=== PATIENT | female | born 1940 | race Caucasian/White ===

== ENCOUNTER → 2016-06-11 | Outpatient (CLI) | payer OTHER ==
[~2016-06-11] MED LIST: ACET650T49 PO; AMOX500C3 PO; BISA1TAB15 PO; CLC100X PO; ODVTWSS; OXYC1TAB3 PO; PSYL55.43 PO; WARF2TAB PO
== END | disposition home or self-care (01) ==
LOC: C.PAPS 14:00
PROVIDERS: ATTEND Obstetrics & Gynecology
DX: C55 Malignant neoplasm of uterus, part unspecified (principal)

== ENCOUNTER → 2016-08-04 | Outpatient (CLI) | payer OTHER ==
[~2016-08-04] MED LIST changes: +ACET-24 PO; +ASPEC325 PO; +CALC500C3 PO; +FRRG PO; +MAGN1TAB21 PO; +MULT-1092 PO; +POLY335019 PO; +ULT50X PO
--- NOTE | 2016-08-04 12:21 | DIAGNOSTIC IMAGING REPORT ---
RIGHT SHOULDER MIN 2 VIEWS ROUTINE CLINICAL HISTORY: RIGHT SHOULDER PAIN Right pain COMPARISON: None. DISCUSSION: Mild calcific supraspinatus tendinitis. Moderate degenerative change acromioclavicular joint. Mild hypertrophic inferior osteophytic change from the acromion as well as acromioclavicular joint. Glenohumeral joint is unremarkable. There is no evidence for soft tissue swelling. IMPRESSION: 1. Mild calcific supraspinatus tendinitis. 2. Significant degenerative change acromioclavicular joint with mild to moderate inferior osteophytic reaction. Electronically signed by: Travis Singh M.D. 08/04/2016 12:20 PM Dictated Date/Time: 08/04/2016 12:19 PM
== END ==
LOC: C.RADPV 12:07
PROVIDERS: ATTEND Neuromusculoskeletal Medicine & OMM
DX: M25.511 Pain in right shoulder (principal)

== ENCOUNTER → 2016-08-05 | Outpatient (CLI) | payer OTHER ==
[2016-08-05 12:38] LABS: ALT/SGPT 20 U/L (12-78); AST/SGOT 16 U/L (15-37); BLOOD UREA NITROGEN 23 mg/dl (7-18); BUN/CREATININE RATIO 25.3 (10-20); CALCIUM 9.2 mg/dl (8.5-10.1); CARBON DIOXIDE 29 mmol/L (21-32); CHLORIDE 108 mmol/L (98-107); CREATININE 0.91 mg/dl (0.60-1.20); GLUCOSE 106 mg/dl (70-99); POTASSIUM 4.5 mmol/L (3.5-5.1); SODIUM 141 mmol/L (136-145)
[2016-08-05 12:40] LABS: BASO % 0.5 %; BASO ABS # 0.03 K/uL (0-0.2); COMPLETE YES; EOS % 4.4 %; HEMATOCRIT 38.3 % (37-47); IG% 0.2 %; LYMPH % 29.6 %; LYMPH ABS # 1.76 K/uL (1.2-3.4); MEAN CELL VOLUME 93.2 fL (80-100); MEAN CORPUSCULAR HEMOGLOBIN 30.7 pg (25-34); MEAN CORPUSCULAR HGB CONC 32.9 g/dl (32-36); MEAN PLATELET VOLUME 10.8 fL (7.4-10.4); MONO % 11.1 %; NEUT % 54.2 %; PLATELET COUNT 246 K/uL (130-400); RED BLOOD COUNT 4.11 M/uL (4.2-5.4); WHITE BLOOD COUNT 5.94 K/uL (4.8-10.8)
[2016-08-05 12:50] LABS: ALB/GLOB RATIO 1.1 (0.9-2); ALKALINE PHOSPHATASE 69 U/L (45-117); CHOLESTEROL 198 mg/dl (0-200); CHOLESTEROL/HDL RATIO 3.7; HDL CHOLESTEROL 53 mg/dl; LDL CHOLESTEROL CALCULATED 120 mg/dl; TRIGLYCERIDES 123 mg/dl (0-150); VERY LOW DENSITY LIPOPROT CALC 25 mg/dl
== END | disposition home or self-care (01) ==
LOC: C.LABPVFM 07:57
PROVIDERS: ATTEND Neuromusculoskeletal Medicine & OMM
DX: Z00.00 Encounter for general adult medical examination without abnormal findings (principal)

== ENCOUNTER → 2016-09-12 | Outpatient (CLI) | payer OTHER | END | disposition home or self-care (01) | LOC: C.PAPS 11:52 | PROVIDERS: ATTEND Obstetrics & Gynecology | DX: C55 Malignant neoplasm of uterus, part unspecified (principal); R87.618 Other abnormal cytological findings on specimens from cervix uteri; N89.8 Other specified noninflammatory disorders of vagina ==

== ENCOUNTER → 2016-09-12 | Outpatient (CLI) | payer OTHER | END | disposition home or self-care (01) | LOC: C.PATHSPEC 13:21 | PROVIDERS: ATTEND Obstetrics & Gynecology | DX: N89.8 Other specified noninflammatory disorders of vagina (principal) ==

== ENCOUNTER → 2017-02-05 | Outpatient (CLI) | payer OTHER ==
[~2017-02-05] MED LIST changes: -ACET-24 PO; -ASPEC325 PO; -BISA1TAB15 PO; -CLC100X PO; -FRRG PO; -MAGN1TAB21 PO; -ODVTWSS; -OXYC1TAB3 PO; -PSYL55.43 PO; -ULT50X PO; -WARF2TAB PO
--- NOTE | 2017-02-05 15:32 | MAMMOGRAPHY REPORT ---
BILATERAL DIGITAL SCREENING MAMMOGRAM WITH CAD: 02/05/2017 CLINICAL HISTORY: Routine screening. Patient has no complaints. TECHNIQUE: Current study was also evaluated with a Computer Aided Detection (CAD) system. Bilateral CC and MLO views were obtained. COMPARISON: Comparison is made to exams dated: 02/04/2016 mammogram, 01/29/2015 mammogram, 01/26/2014 mammogram, 01/25/2013 mammogram, 08/06/2011 mammogram, and 07/22/2010 mammogram - [facility] enter. BREAST COMPOSITION: There are scattered areas of fibroglandular density in both breasts. FINDINGS: No suspicious masses, calcifications, or areas of architectural distortion are noted in ei ther breast. There has been no significant interval change compared to prior exams. IMPRESSION: ACR BI-RADS CATEGORY 1: NEGATIVE There is no mammographic evidence of malignancy. A 1 year screening mammogram is recommended. The pa tient will receive written notification of the results. Approximately 10% of breast cancers are not detected with mammography. A negative mammographic report should not delay biopsy if a clinically suggestive mass is present. Carolyn Lee M.D. /:02/05/2017 10:33:04 Safety Manager: Kelli SOUSA)(Phong), [facility] letter sent: Normal 1/2 BI-RADS Code: ACR BI-RADS Category 1: Negative
== END | disposition home or self-care (01) ==
LOC: C.MAMM 09:43
PROVIDERS: ATTEND Family Medicine
DX: Z12.31 Encounter for screening mammogram for malignant neoplasm of breast (principal)

== ENCOUNTER 2017-02-18 08:43 | Inpatient (IN) | payer OTHER ==
[2017-01-30 09:35] VITALS: BMI 36.0
--- NOTE | 2017-01-30 10:05 | PAT Medication Instructions ---
Service Date Jan 30, 2017. Current Home Medication List Acetaminophen (Arthritis Pain Relief), 1,300 MG PO BID PRN Amoxicillin (Amoxil), 500 MG PO prior to dental proc Calcium Carbonate (Tums), 2 TABS PO DAILY PRN for Heartburn Multiple Vitamins W/ Minerals (Centrum Silver 50+Women), 1 TAB PO QAM Polyethylene Glycol 3350 (Miralax), 17 GM PO DAILY PRN for Constipation Medication Instructions For Your Scheduled Surgery - Hold the following medications the morning of surgery: Polyethylene Glycol 3350 (Miralax), 17 GM PO DAILY PRN for Constipation Calcium Carbonate (Tums), 2 TABS PO DAILY PRN for Heartburn Multiple Vitamins W/ Minerals (Centrum Silver 50+Women), 1 TAB PO QAM Amoxicillin (Amoxil), 500 MG PO prior to dental proc - Take the following medications the morning of surgery with a sip of water: Acetaminophen (Arthritis Pain Relief), 1,300 MG PO BID PRN (if needed, can be taken up to four hours before surgery) - Take the following medications as scheduled the night before surgery: Polyethylene Glycol 3350 (Miralax), 17 GM PO DAILY PRN for Constipation Acetaminophen (Arthritis Pain Relief), 1,300 MG PO BID PRN (if needed) If you have any questions please call us at [phone] or [phone] or [phone]
--- NOTE | 2017-01-30 10:58 | DIAGNOSTIC IMAGING REPORT ---
CHEST PREADMISSION(PA/LAT) CLINICAL HISTORY: PAT preoperative evaluation COMPARISON STUDY: 07/14/2012 FINDINGS: The bones soft tissues and hemidiaphragms are normal. The cardiomediastinal silhouette is normal. The lungs are clear. The pulmonary vasculature is normal. IMPRESSION: Negative chest. The above report was generated using voice recognition software. It may contain grammatical, syntax or spelling errors. Electronically signed by: Travis Singh M.D. 01/30/2017 10:57 AM Dictated Date/Time: 01/30/2017 10:56 AM
[2017-01-30 11:13] LABS: BASO % 1.1 %; BASO ABS # 0.06 K/uL (0-0.2); COMPLETE YES; EOS % 3.1 %; HEMATOCRIT 36.6 % (37-47); IG% 0.2 %; LYMPH % 31.2 %; LYMPH ABS # 1.72 K/uL (1.2-3.4); MEAN CELL VOLUME 92.9 fL (80-100); MEAN CORPUSCULAR HEMOGLOBIN 30.5 pg (25-34); MEAN CORPUSCULAR HGB CONC 32.8 g/dl (32-36); MEAN PLATELET VOLUME 10.2 fL (7.4-10.4); MONO % 9.6 %; NEUT % 54.8 %; PLATELET COUNT 223 K/uL (130-400); RED BLOOD COUNT 3.94 M/uL (4.2-5.4); WHITE BLOOD COUNT 5.51 K/uL (4.8-10.8)
[2017-01-30 11:41] LABS: PARTIAL THROMBOPLASTIN RATIO 1.2; PROTHROMBIN TIME (PATIENT) 10.6 SECONDS (9.0-12.0)
[2017-01-30 12:19] LABS: CREATININE 0.85 mg/dl (0.60-1.20)
[2017-01-30 12:20] LABS: BUN/CREATININE RATIO 18.4 (10-20); C-REACTIVE PROTEIN 0.69 mg/dl (0-0.29); CALCIUM 9.1 mg/dl (8.5-10.1); POTASSIUM 4.1 mmol/L (3.5-5.1)
--- NOTE | 2017-02-13 10:48 | HISTORY & PHYSICAL EXAMINATION ---
DATE OF ADMISSION: 02/18/2017 CHIEF COMPLAINT: Left knee pain. HISTORY OF PRESENT ILLNESS: This is a 76-year-old female who presents for surgical treatment of her left knee. She has got a long history of left knee pain and discomfort that has become less responsive to conservative care over time. She has been really kind of struggling with this. She had some type of cancer treatments and was waiting until these were over. She is now done with treatment and in remission. Her knee continues to bother. Pain is global in her knee. It is increased with weightbearing. The more she walks, the more it hurts. Of note, the patient does have a history of right knee and right hip replacement done by Dr. Paul in the past. PAST MEDICAL HISTORY: 1. Arthritis. 2. Gastroesophageal reflux disease. 3. Basal cell skin cancer. PAST SURGICAL HISTORY: 1. Right shoulder surgery. 2. D&C. 3. Laparoscopy. 4. Skin cancer removal. 5. Right total knee replacement. 6. Right total hip replacement. 7. Heel spur removal. ALLERGIES: CODEINE AND SULFA. CURRENT MEDICATIONS: 1. Tylenol. 2. Aleve. 3. Tums. SOCIAL HISTORY: A 76-year-old female. She is . No alcohol or tobacco use. FAMILY HISTORY: Significant for heart disease and diabetes. REVIEW OF SYSTEMS: Negative for diabetes, neurologic problems, vascular problems, bleeding disorders. No history of chest pain or shortness of breath. No history of DVT or PE. PHYSICAL EXAMINATION: GENERAL: Reveals a healthy pleasant 76-year-old female who looks to be in good health. HEENT: Benign. NECK: Supple. No lymphadenopathy. LUNGS: Clear to auscultation. HEART: Regular rate and rhythm. ABDOMEN: Soft, nontender, nondistended. EXTREMITIES: Grossly neurovascularly intact except as follows. Examination of the left knee reveals the patient ambulates with a slight bit of a limp. She has got varus alignment to her knee. She is tender over the medial joint line. Range of motion is 5-10 degrees short of full extension to 110 degrees of flexion. She can do a straight leg raise. X-RAYS: X-rays of the left knee reviewed. It shows advanced left knee DJD. She has got complete loss of her medial joint space. She has significant tibial femoral subluxation. She has subchondral sclerosis. ASSESSMENT: A 76-year-old female status post right total hip and total knee replacements done by Dr. Paul with advanced left knee degenerative joint disease. She has failed conservative treatment and would to like her left knee replaced. PLAN: We will take her to the operating room and do a left total knee replacement. The risks and benefits of this procedure were explained to the patient that include, but not limited to DVT, PE, , infection, neurological injury, neurovascular injury, bleeding problem, pain, limited range of motion, stiffness, failure to relieve of symptoms, incomplete relief of symptoms, need for further surgery in the future, fracture, leg length inequality, nerve palsy, etc. The patient understands and desires to proceed. Informed consent was obtained. The patient is planning to be discharged home with [facility] home health program. Her is available to assist in her care.
[2017-02-18] VITALS (8 sets, daily range): BP systolic 112–142; BP diastolic 67–96; PULSE 50–99; TEMP 36.3–36.9; O2SAT 96–100; Ht 160 cm; Wt 94.0 kg
[~2017-02-18] VITALS: Ht 160 cm; Wt 94.0 kg
[~2017-02-18 08:43] MED LIST changes: +ACETAMINOPHEN 500 MG TAB PO SCH; +BUPIVACAINE 0.25% 30 ML VIAL ONE; +BUPIVACAINE 0.5 % 5 MG/1 ML PF 10ML VIAL ONE; +BUPIVACAINE LIPOSOME 266 MG, BUPIVACAINE/EPINEPHRINE INJ 50 ML, SODIUM CHLORIDE 0.9% PF... INFIL SCH; +CEFAZOLIN 2000MG IV PUSH 10 ML IV SCH; +EpINEphrine INJ 1MG/ML AMP 1 MG/ML AMP ONE; +FAMOTIDINE 20 MG TAB PO SCH; +GABAPENTIN 300 MG CAP PO SCH; +LACTATED RINGER'S 1000ML 1,000 ML IV SCH; +LACTATED RINGER'S 1000ML IV SCH; +METOCLOPRAMIDE HCL 10 MG TAB PO SCH; +SCOPOLAMINE 1.5 MG TDSY TD SCH; +TRANEXAMIC ACID INJ 1,000 MG in SYRINGE 0 ML IV SCH
[2017-02-18] MEDS ORDERED: MAGN1TAB21 PO (09:14)
[2017-02-18] MEDS ORDERED: LIDOCAINE HCL 2% 2 ML VIAL (20MG/ML) ONE (09:18)
[2017-02-18] MEDS ORDERED: MIDAZOLAM HCL 1 MG/ML 2ML VIAL ONE (09:18)
[2017-02-18] MEDS ORDERED: PROPOFOL IV EMULSION 10 MG/ML 20 ML VIAL IV ONE ×2 (09:18→11:16)
[2017-02-18] MEDS ORDERED: FENTANYL CITRATE INJ 50 MCG/1 ML 2 ML VIAL ONE (09:19)
--- NOTE | 2017-02-18 09:41 | History & Physical Bridge Note ---
H&P Re-Evaluation Bridge Note: I have examined the patient, reviewed the History & Physical and in the interval since the performance of the History & Physical I have noted the following changes of clinical significance: No changes noted
[2017-02-18] MEDS ORDERED: BUPIVACAINE/EPINEPHRINE 0.25% 1:200,000 30 ML VIAL ONE (10:27)
[2017-02-18] MEDS ORDERED: SODIUM CHLORIDE 0.9% PF 50 ML VIAL ONE (10:28)
[2017-02-18] MEDS ORDERED: BACITRACIN 50000 UNIT VIAL ONE (10:28)
[2017-02-18] MEDS ORDERED: BUPIVACAINE LIPOSOME 1/3% 266 MG/20 ML VIAL INFIL ONE (10:28)
[2017-02-18] MEDS ORDERED: LABETALOL HCL IV 5 MG/ML 20ML IV PRN (10:30)
[2017-02-18] MEDS ORDERED: PHENYLEPHRINE 100MCG/ML 5ML SYR IV PRN (10:30)
[2017-02-18] MEDS ORDERED: EpHEDrine SULFATE INJ 50 MG/ML AMP IV PRN (10:30)
[2017-02-18] MEDS ORDERED: ONDANSETRON INJ 2 MG/ML 2 ML VIAL IV PRN ×2 (10:30→13:00)
[2017-02-18] MEDS ORDERED: FLUMAZENIL 0.1 MG/1 ML 10 ML VIAL IV PRN (10:30)
[2017-02-18] MEDS ORDERED: ATROPINE SULFATE 0.1 MG/ML 5ML SYR IV PRN (10:30)
[2017-02-18] MEDS ORDERED: NALOXONE HCL 0.4 MG/1 ML VIAL/CARP IV PRN (10:30)
[2017-02-18] MEDS ORDERED: MEPERIDINE HCL 25 MG/ML CARP IV PRN (10:30)
[2017-02-18] MEDS ORDERED: FENTANYL CITRATE INJ 50 MCG/1 ML 2 ML VIAL IV PRN (10:30)
--- NOTE | 2017-02-18 12:48 | [facility] Post Operative Brief Note ---
Immediate Operative Summary Operative Date Feb 18, 2017. Pre-Operative Diagnosis Advanced Left Knee Degenerative Joint Disease Post-Operative Diagnosis Advanced Left Knee Degenerative Joint Disease Procedure(s) Performed Left Total Knee Arthroplasty Cemented Surgeon Dr Faustino Hood Client Analyst Surgeon(s) Gregg Costa PA-C Estimated Blood Loss 50 ml Findings Left Knee DJD Fluids (cc crystalloids) 1350 cc Specimens As Per Surgeon A. Left Knee Bone and Tissue Drains None Anesthesia Spinal Complication(s) None Disposition Recovery Room / PACU
[2017-02-18] MEDS ORDERED: ALUMINUM/MAGNESIUM/SIMETH (MAALOX MAX) 30 ML UDC PO PRN (13:00)
[2017-02-18] MEDS ORDERED: MAGNESIUM CITRATE PO SCH (13:00)
[2017-02-18] MEDS ORDERED: POLYETHYLENE (MIRALAX) 17 GM PACK PO PRN (13:00)
[2017-02-18] MEDS ORDERED: BISACODYL 10 MG SUPP PR PRN (13:00)
[2017-02-18] MEDS ORDERED: ZOLPIDEM TARTRATE 5 MG TAB PO PRN (13:00)
[2017-02-18] MEDS ORDERED: CALCIUM CARBONATE 500 MG CHEWABLE PO PRN (13:00)
[2017-02-18] MEDS ORDERED: METOCLOPRAMIDE HCL INJ 5 MG/ML 2 ML VIAL IV PRN (13:00)
[2017-02-18] MEDS ORDERED: MAGNESIUM HYDROXIDE SUSP 30 ML UDC PO PRN (13:00)
[2017-02-18] MEDS ORDERED: HYDROmorphone INJ 0.5 MG/0.5 ML SYR IV PRN (13:00)
--- NOTE | 2017-02-18 13:42 | OPERATIVE REPORT ---
DATE OF OPERATION: 02/18/2017 SURGEON: Faustino Hood MD ASSOCIATE ACCOUNTANT: BAUDILIO Carmona PREOPERATIVE DIAGNOSIS: Left knee degenerative joint disease. POSTOPERATIVE DIAGNOSIS: Same. PROCEDURE PERFORMED: Left cemented posterior stabilized total knee arthroplasty. COMPLICATIONS: None. ESTIMATED BLOOD LOSS: 50 mL. FLUID REPLACEMENT: 1350 mL crystalloid fluid replacement. TOURNIQUET TIME: 61 minutes at 300 mmHg. ANESTHESIA: Spinal with adductor canal block. DRAINS: None. SPECIMENS: Left knee sent for pathology. OPERATIVE INDICATIONS: The patient is a 76-year-old female who has had a long history of multiple joint problems in the past. She has had both her right hip and her right knee replaced. Over the past several years, she has developed increased pain and discomfort in her left knee. She has been through extensive conservative treatment without adequate relief. She elected to proceed with total knee arthroplasty. OPERATIVE FINDINGS: Operative findings revealed advanced left knee DJD. She had grade 4 [id number] disease, most extensive in the medial compartment with eburnation and wear of the posteromedial tibial plateau. She did have grade 4 changes throughout the lateral and patellofemoral compartments as well, but not as severe. She had a moderate sized joint effusion. OPERATIVE IMPLANTS: Operative implants consisted of: 1. Biomet Vanguard size 62.5 left posterior stabilized femoral component. 2. Biomet size 71 tibial tray. 3. A 10-mm posterior stabilized polyethylene insert. 4. A 31 x 8 all poly patella. OPERATIVE PROCEDURE: The patient was taken to the operating room, identified and placed on the operating table in the supine position. All contact areas were appropriately padded. IV antibiotics were provided by the anesthesia team. A spinal anesthetic had been implemented in the holding area along with an adductor canal block. A Saleem catheter was placed in sterile fashion. A left thigh tourniquet was then placed and the left lower extremity was then prepped and draped in the usual sterile fashion. The left leg was elevated and exsanguinated with Esmarch and tourniquet was placed at 300 mmHg. An anterior approach to the left knee was then performed through a longitudinal incision centered over the patella. Sharp dissection was carried out through the subcutaneous tissues down to the level of the extensor mechanism. A medial parapatellar arthrotomy incision was made. Some subperiosteal dissection was carried out medially. The fat pad was resected from beneath the patellar tendon. The lateral patellofemoral ligament was released. The patella was everted and the knee was flexed. The osteophytes were taken off the distal femur. The ACL and PCL were then released from the distal femur and the tibia subluxated anteriorly. The external tibial alignment jig was then placed in the anterior face of the tibia and adjusted about 16 mm medially. Proximal tibial cut was made to remove about a millimeter at most from the most deficient aspect of the posteromedial tibial plateau. Some osteophytes were taken off medial and posteromedially. Tibia was sized to a size 71. Attention was then drawn to the femur. The distal femur was entered with a sharp drill. Intramedullary canal was suctioned. A left 5-degree valgus cutting guide was placed. The distal femoral cutting block was pinned in place. Distal femoral cut was made to take an additional 3 mm of bone off the distal femur. The femur was then sized to a size 62.5. We did downsize this. The AP cutting block was pinned parallel to the epicondylar axis, which was 5 degrees of external rotation. The anterior cut, anterior chamfer, posterior cut, and posterior chamfer cuts were made. Box cutting guide was placed and adjusted slight lateral and the box cut was made. The knee was flexed. The remnants of the medial and lateral menisci were excised. The osteophytes were taken off the posterior aspect of the femur. A trial femoral component was placed. Tibial tray was pinned in maximum external rotation and drill and stem punch were used to create defect in proximal tibia for the tibial tray. The knee was then trialed and the 10-mm insert fit most appropriately. Attention was then drawn to the patella. The patella was cleaned of all soft tissues. Patella thickness measured 21 mm in thickness and it was cut down to 13. It was sized to a size 31 patella. Lug holes were drilled for the 31 patella. Lateral osteophyte was removed. Patella button was placed. Knee was taken through range of motion and the patella tracked nicely with no thumbs test. Attention was then drawn toward placement of permanent components. All trial components were removed. A bone plug was placed in the distal femur to limit blood loss. A double batch of Palacos G cement was mixed. A size 62.5 posterior stabilized femoral component, size 71 tibial tray, a 10-mm posterior stabilized polyethylene insert, and a 31 x 8 all poly patella were then cemented in place. The knee was brought out into full extension until cement hardened. A final cement check was then performed. Pericapsular tissues were injected with a total of 100 mL of a combination of 20 mL of Exparel, 30 mL of normal saline, and 50 mL of 0.25% Marcaine with epinephrine. The patient did receive 1 gram of tranexamic acid. The tourniquet was then let down for a final tourniquet time of 61 minutes. Hemostasis was assured with use of electrocautery. The wound was once again irrigated. The extensor mechanism was then closed with a combination of #1 PDS suture and #1 Vicryl suture in a [id number] fashion. Extensor mechanism was then checked and found to be intact. The subcutaneous tissues were then closed with 2-0 Dexon suture in a buried interrupted fashion. Skin was closed with skin barry. The leg was then cleaned and dried and a sterile dressing of Xeroform, 4 x 4, sterile cast padding and Eric bandage were applied. The patient was then transferred to the recovery room in stable condition. The patient tolerated the procedure well with no complications. All needle and sponge counts were correct at the end of the operation. I attest to the content of the Intraoperative Record and any orders documented therein. Any exception s are noted below.
--- NOTE | 2017-02-18 13:46 | Anesthesiology Progress Note ---
Anesthesia Post Op Note Date & Time Feb 18, 2017 at 13:46 Vital Signs Pain Intensity: 0 Vital Signs Past 12 Hours Date Time Temp Pulse Resp B/P (MAP) Pulse Ox O2 Delivery O2 Flow Rate FiO2 02/18/17 13:30 36.5 51 18 110/66 99 Nasal Cannula 2 02/18/17 13:20 53 16 115/72 98 Nasal Cannula 2 02/18/17 13:10 61 17 125/64 98 Nasal Cannula 2 02/18/17 13:00 59 15 109/58 98 Nasal Cannula 2 02/18/17 12:53 36.7 67 16 88/73 97 Nasal Cannula 2 02/18/17 09:05 36.7 71 20 139/96 99 Room Air Notes Mental Status: alert / awake / arousable, participated in evaluation Pt Amnestic to Procedure: Yes Nausea / Vomiting: adequately controlled Pain: adequately controlled Airway Patency, RR, SpO2: stable & adequate BP & HR: stable & adequate Hydration State: stable & adequate Neuraxial Anesthesia: was administered, sensory block is resolving Anesthetic Complications: no major complications apparent
--- NOTE | 2017-02-18 13:46 | DIAGNOSTIC IMAGING REPORT ---
TWO VIEWS LEFT KNEE CLINICAL HISTORY: Postoperative examination. FINDINGS: AP and crosstable lateral portable views of the left knee are obtained. A left knee arthroplasty is in near anatomic alignment. There has been undersurface remodeling of the patella. No acute fracture is seen. There are expected postoperative changes around the knee including skin clips, soft tissue edema, and subcutaneous gas. IMPRESSION: Expected postoperative changes status post left knee arthroplasty. No acute fracture is seen. Electronically signed by: Dylan Matamoros M.D. 02/18/2017 1:45 PM Dictated Date/Time: 02/18/2017 1:44 PM
[2017-02-18] MEDS: CHECK SCOPOLAMINE PATCH PLACEMENT SCH ×2 (16:08→23:49)
[2017-02-18] MEDS: TRAMADOL HCL 50 MG TAB PO PRN ×2 (17:02→18:10)
[2017-02-18] MEDS: D5W AND 1/2NSS + 20MEQ KCL 1,000 ML IV SCH (18:10)
[2017-02-18] MEDS: FERROUS GLUCONATE 324 MG TAB PO SCH (18:11)
[2017-02-18] MEDS: CEFAZOLIN IV 2,000 MG in SYRINGE 0 ML IV SCH (20:07)
[2017-02-18] MEDS: KETOROLAC TROMETHAMINE 15 MG/ML VIAL IV. SCH (20:07)
[2017-02-18] MEDS: SENNA 8.6 MG TAB PO SCH (21:50)
[2017-02-18] MEDS: ASPIRIN 325 MG ECTAB PO SCH (21:50)
[2017-02-18] MEDS: DOCUSATE SODIUM 100 MG CAP PO SCH (21:50)
[2017-02-18] MEDS: ACETAMINOPHEN 500 MG TAB PO SCH (21:50)
[2017-02-18] MEDS ORDERED: TRANEXAMIC ACID INJ 1,000 MG in SODIUM CHLORIDE 0.9% 100ML 100 ML IV SCH (22:00)
[2017-02-19] MEDS: D5W AND 1/2NSS + 20MEQ KCL 1,000 ML IV SCH ×2 (01:35→08:58)
[2017-02-19] MEDS: KETOROLAC TROMETHAMINE 15 MG/ML VIAL IV. SCH ×4 (01:35→19:36)
[2017-02-19 03:30] VITALS: BP 125/74; PULSE 65; TEMP 36.7; O2SAT 96
[2017-02-19] MEDS: CEFAZOLIN IV 2,000 MG in SYRINGE 0 ML IV SCH (04:07)
[2017-02-19] MEDS: ACETAMINOPHEN 500 MG TAB PO SCH ×3 (05:48→21:23)
[2017-02-19 06:47] LABS: HEMATOCRIT 32.7 % (37-47); MEAN CELL VOLUME 93.2 fL (80-100); MEAN CORPUSCULAR HEMOGLOBIN 30.2 pg (25-34); MEAN CORPUSCULAR HGB CONC 32.4 g/dl (32-36); PLATELET COUNT 215 K/uL (130-400); RED BLOOD COUNT 3.51 M/uL (4.2-5.4); WHITE BLOOD COUNT 6.86 K/uL (4.8-10.8)
[2017-02-19 07:14] LABS: BUN/CREATININE RATIO 18.3 (10-20); CALCIUM 8.5 mg/dl (8.5-10.1); CREATININE 0.9 mg/dl (0.60-1.20); POTASSIUM 4.1 mmol/L (3.5-5.1)
[2017-02-19 07:30] VITALS: BP 123/78; PULSE 53; TEMP 36.7; O2SAT 98
--- NOTE | 2017-02-19 07:30 | PROGRESS NOTE ---
DATE: 02/19/2017 SUBJECTIVE: A 76-year-old female postop day 1 from a left knee replacement. She is doing pretty well. Pain is controlled. Had pretty good evening. No chest pain or shortness of breath. Not feeling dizzy or lightheaded. OBJECTIVE: VITAL SIGNS: Temperature 36.7. Vital signs stable. GENERAL: Reveals a healthy, pleasant middle-aged female who is sitting up in her bedside chair and looks comfortable. LUNGS: Clear to auscultation. HEART: Regular rate and rhythm. ABDOMEN: Soft, nontender, nondistended. EXTREMITIES: Grossly neurovascularly intact except as follows. Examination of left lower extremity reveals the dressing to be clean, dry and intact. Leg is well aligned. She can dorsiflex and plantarflex her foot appropriately. She is neurologically intact. LABORATORY DATA: Hemoglobin 10.6, hematocrit 32.7. Electrolytes are stable. ASSESSMENT: A 76-year-old female postop day 1 from left knee replacement, doing well. Pain is controlled. She is neurologically intact. PLAN: 1. DVT prophylaxis include thigh-high TEDs, SCDs, and aspirin twice a day. 2. PT/OT. Weight bear as tolerated. Left total knee protocol. 3. Pain control, doing well with current pain regimen. 4. Disposition: Plan to discharge to home. She is going to have some home health once adequately recovered.
[2017-02-19] MEDS: DOCUSATE SODIUM 100 MG CAP PO SCH ×2 (08:57→21:23)
[2017-02-19] MEDS: FERROUS GLUCONATE 324 MG TAB PO SCH ×3 (08:57→18:08)
[2017-02-19] MEDS: ASPIRIN 325 MG ECTAB PO SCH ×2 (08:57→21:23)
[2017-02-19] MEDS: CEROVITE ADV FORMULA TAB PO SCH (08:57)
[2017-02-19] MEDS: MULTIVITAMIN TAB PO SCH (08:58)
[2017-02-19] MEDS: PANTOprazole SOD 40 MG TAB PO SCH (08:58)
[2017-02-19] MEDS: TRAMADOL HCL 50 MG TAB PO PRN ×2 (09:08→14:07)
[2017-02-19] MEDS ORDERED: NURSING VERBAL MED ORDER ONE (09:30)
--- NOTE | 2017-02-19 09:48 | Anesthesiology Progress Note ---
Anesthesia Post Op Note Date & Time Feb 19, 2017 at 09:47 Vital Signs Pain Intensity: 5.0 Vital Signs Past 12 Hours Date Time Temp Pulse Resp B/P (MAP) Pulse Ox O2 Delivery O2 Flow Rate FiO2 02/19/17 07:40 Room Air 02/19/17 07:30 36.7 53 16 123/78 (93) 98 Room Air 02/19/17 03:30 36.7 65 16 125/74 (91) 96 Room Air 02/18/17 23:50 Room Air 02/18/17 23:00 36.9 69 18 138/84 (102) 96 Room Air Notes Mental Status: alert / awake / arousable, participated in evaluation Pt Amnestic to Procedure: Yes Nausea / Vomiting: adequately controlled Pain: adequately controlled Airway Patency, RR, SpO2: stable & adequate BP & HR: stable & adequate Hydration State: stable & adequate Neuraxial Anesthesia: sensory block resolved Anesthetic Complications: no major complications apparent
[2017-02-19 11:42] VITALS: BP 123/78
[2017-02-19 12:10] VITALS: BP 113/76; PULSE 66; TEMP 36.9; O2SAT 97
[2017-02-19 15:24] VITALS: BP 135/78; PULSE 65; TEMP 36.7; O2SAT 97
[2017-02-19] MEDS ORDERED: FRRG PO (21:17)
[2017-02-19] MEDS ORDERED: ACET-24 PO (21:17)
[2017-02-19] MEDS ORDERED: ASPEC325 PO (21:17)
[2017-02-19] MEDS ORDERED: ULT50X PO (21:17)
--- NOTE | 2017-02-19 21:20 | Discharge Instructions ---
Discharge Instructions Date of Service Feb 19, 2017. Admission Reason for Admission: Left Knee Degenerative Joint Disease Discharge Discharge Diagnosis / Problem: Left Knee Replacement Discharge Goals Goal(s): Decrease discomfort, Improve function, Increase independence, Improve disease control, Therapeutic intervention Activity Recommendations Activity Limitations: per Instructions/Follow-up section Weightbearing Status: Left weightbearing . Instructions / Follow-Up Instructions / Follow-Up ACTIVITY RECOMMENDATIONS: Physical Therapy: * You will go to physical therapy three times each week for four to six weeks after your surgery in order to regain your knee range of motion and to retrain your knee to work properly. * It is just as important to make sure you are getting your knee perfectly straight as it is to regain your knee bend. * Taking a pain pill an hour before therapy can help you have a more productive and comfortable therapy session. Home Exercise: * You were shown a series of exercises (heel props, heel slides, etc.) in the hospital. Do these exercises three to four times each day including the exercises you were shown in physical therapy. Walking: * Get up and walk several times each day. For the first four weeks, try not to stand or walk for more than one hour at a time. If you do stand or walk for more than one hour, you will not hurt anything, but your knee and leg will likely swell. * As you feel comfortable, you may change from the walker or crutches to a cane and then to independent walking. MEDICATIONS: New Medicine: * You will likely be taking one or more of these medications: 1. Tramadol - A quick and shorter-acting pain medication. Take one to two tablets every four to six hours to lessen your pain. 2. Iron Sulfate - Take three times each day for the month after surgery to help you replace the blood lost during surgery. 3. Aspirin - Thins your blood to lessen the chance of forming a blood clot. * The most common side effects of pain medicine and iron are nausea and constipation. If nausea or constipation is too much of a problem or if you have any questions about your new medicines or doses, call [facility] at [phone]. We will try to help you manage these issues. VERY IMPORTANT TO READ AND REVIEW" Pain: * The immediate post-operative period after knee replacement surgery is often quite painful. * You are given a prescription for pain medicine. You should take it, as directed, when you need it, especially before physical therapy and before going to bed. Pain that interferes with sleep is very common and can last several months. * You will likely need pain medicine for the first four to six weeks. It will not stop all of the pain. The pain will lessen and as you feel better, you may change to milder pain medicine such as Tylenol. * The most common side effects of pain medicine are nausea and constipation, so don't take more than you need. SPECIAL CARE INSTRUCTIONS: TEDs/Elastic Stockings: * The white elastic stockings help limit swelling and prevent blood clots from forming in your legs. The more you wear them, the more they work. * Wear them for six weeks after knee replacement surgery and four weeks after partial knee replacement. Prevention of Infection: * Take antibiotics one hour before any dental cleaning, dental work, urological procedure, gastrointestinal procedure or any invasive surgery in order to prevent your new joint from getting infected. * You may get the antibiotics from the doctor performing the procedure or you may call our office at before and we will call in a prescription to the pharmacy of your choice. Things to Watch For: * Drainage from the incision site that occurs more than one week after your surgery. * Severely increased knee/leg pain or swelling. * Increased redness at the incision site. * Fever above 102 degrees Fahrenheit. * Unusual chest pain or shortness of breath. * Unusual pain or burning with urination. Call [facility] at with any of the above problems or if you have any questions about your medicines or recovery. FOLLOW UP VISIT: Make an appointment to see your doctor for approximately two weeks after surgery for a progress check and staple removal by calling the office at . Current Hospital Diet Patient's current hospital diet: Regular Diet Discharge Diet Recommended Diet: Regular Diet Procedures Procedures Performed: Left Total Knee Arthroplasty Cemented Pending Studies Studies pending at discharge: no Medical Emergencies . Who to Call and When: Medical Emergencies: If at any time you feel your situation is an emergency, please call [phone] immediately. . Non-Emergent Contact Non-Emergency issues call your: Surgeon . "Provider Documentation" section prepared by Faustino Hood. . VTE Core Measure Inpt VTE Proph given/why not?: Other Anticoagulation, T.E.D. Stockings, SCD's
[2017-02-19] MEDS: SENNA 8.6 MG TAB PO SCH (21:23)
[2017-02-19 22:55] VITALS: BP 119/79; PULSE 66; TEMP 36.5; O2SAT 95
[2017-02-20] MEDS: KETOROLAC TROMETHAMINE 15 MG/ML VIAL IV. SCH ×2 (02:14→07:39)
[2017-02-20] MEDS: ACETAMINOPHEN 500 MG TAB PO SCH (05:37)
[2017-02-20 06:46] VITALS: BP 132/76; PULSE 65; TEMP 36.5; O2SAT 99
[2017-02-20 07:34] VITALS: BP 168/101; PULSE 69; TEMP 36.5; O2SAT 99
[2017-02-20 07:37] VITALS: BP 157/82; PULSE 65
[2017-02-20] MEDS: MULTIVITAMIN TAB PO SCH (07:40)
[2017-02-20] MEDS: PANTOprazole SOD 40 MG TAB PO SCH (07:40)
[2017-02-20] MEDS: DOCUSATE SODIUM 100 MG CAP PO SCH (07:40)
[2017-02-20] MEDS: FERROUS GLUCONATE 324 MG TAB PO SCH (07:40)
[2017-02-20] MEDS: CEROVITE ADV FORMULA TAB PO SCH (07:40)
[2017-02-20] MEDS: ASPIRIN 325 MG ECTAB PO SCH (07:40)
[2017-02-20] MEDS: TRAMADOL HCL 50 MG TAB PO PRN (07:46)
[2017-02-20 08:22] VITALS: BP 157/82; PULSE 65; TEMP 36.5; O2SAT 99
[2017-02-20 08:30] VITALS: O2SAT 98
[2017-02-20 09:18] VITALS: BP 143/78; PULSE 63; O2SAT 99
--- NOTE | 2017-02-20 10:53 | PROGRESS NOTE ---
DATE: 02/20/2017 SUBJECTIVE: 76-year-old female postop day 2 from left knee replacement. She is doing pretty well. Reports minimal pain. No chest pain or shortness of breath. Not feeling dizzy or lightheaded. OBJECTIVE: VITAL SIGNS: Temperature 36.5. Vital signs stable. GENERAL: Reveals a pleasant elderly female. She is sitting up in a wheelchair doing some therapy. She looks pretty comfortable. EXTREMITIES: Examination of the left leg reveals the leg to be well aligned. Some moderate swelling. Just a little bit of kind of serous and lightly blood-tinged drainage seeping from the incision. She can dorsiflex and plantarflex her foot appropriately. She can do a straight leg raise. ASSESSMENT: 76-year-old female postop day 2 from left knee replacement, doing pretty well. Pain is controlled. PLAN: 1. DVT prophylaxis including thigh high TEDs, SCDs, and aspirin twice a day. 2. PT, OT. Weight bear as tolerated. Left total knee protocol. 3. Pain control, doing well with current pain regimen. 4. Disposition: Plan to discharge to home with some home health later today.
--- NOTE | 2017-03-02 16:36 | DISCHARGE SUMMARY ---
ADMITTING PHYSICIAN AND SURGEON: Dr. Hood. ADMITTING DIAGNOSIS: Left knee degenerative joint disease. SURGERY PERFORMED: Left total knee arthroplasty. SECONDARY DIAGNOSES: Arthritis, gastroesophageal reflux disease, basal cell skin cancer. CONSULTS: None obtained. HISTORY AND PHYSICAL EXAMINATION: Well documented in the patient's chart. HOSPITAL COURSE: The patient was admitted on 02/18/2017 underwent total knee arthroplasty, tolerated the procedure well. There were no complications. She was transferred to the PACU postoperatively and later to the orthopedic floor for further care. She was given Ancef for antibiotic prophylaxis, CASEY stockings, SCDs and aspirin for DVT prophylaxis. Hemoglobin, hematocrit and vital signs were monitored during her hospital stay and remained stable. She developed some mild postoperative anemia with a hemoglobin of 10.6; did not require any blood transfusions. There were no complications. By postoperative day 2 she was tolerating a regular diet, pain was controlled with oral pain medicine. She was participating in physical therapy and had no signs or symptoms of deep vein thrombosis. On postop day 2 she was discharged home, given printed discharge instructions, set up with home health services. She was given new prescriptions for extra strength Tylenol, aspirin 325 mg b.i.d., iron supplement and tramadol. Continue her home medications with the exception of her home dose of Tylenol, which was changed. Continue physical therapy, weightbearing as tolerated, CASEY stockings. Follow up in 10-12 days or sooner if there are problems or concerns.
== END 2017-02-20 11:35 | disposition home health service (06) | DRG 470 ==
LOC: C.ACU 08:43 → C.3E 10:40 → ENRESERV 13:58
PROVIDERS: ADMIT Orthopaedic Surgery Sports Medicine; ATTEND Orthopaedic Surgery Sports Medicine
PROC: 0SRD0J9 Replacement of Left Knee Joint with Synthetic Substitute, Cemented, Open Approach (ICD-10-PCS; principal; 2017-02-18 11:15)
DX: M17.12 Unilateral primary osteoarthritis, left knee (principal); K21.9 Gastro-esophageal reflux disease without esophagitis; Z85.828 Personal history of other malignant neoplasm of skin; Z96.641 Presence of right artificial hip joint; Z96.651 Presence of right artificial knee joint; Z88.2 Allergy status to sulfonamides

== ENCOUNTER 2022-10-14 05:02 | Observation (INO) ==
--- NOTE | 2022-10-03 10:51 | PAT Medication Instructions ---
Medication Instructions Date of Service October 03, 2022 Home Medications cdhuqzow-[id number]-bytj 8 mg-folic 400 mcg-K 50 mcg-lutein 300 mcg tablet (Centrum Silver Women) 1 tab PO QAM acetaminophen 650 mg tablet,extended release 1,300 mg PO BID guar gum 2 tbsp PO TID meloxicam 15 mg tablet 15 mg PO QAM PRN ASK your surgeon for instructions meloxicam 15 mg tablet 15 mg PO QAM PRN STOP taking 2 weeks before surgery (or as soon as possible if surgery is within 2 weeks) guar gum 2 tbsp PO TID DO NOT take the morning of surgery pimpmjce-fuaj-vydg 8 mg-folic 400 mcg-K 50 mcg-lutein 300 mcg tablet (Centrum Silver Women) 1 tab PO QA Take morning of surgery With a small sip of water, OTHERWISE NOTHING TO EAT OR DRINK AFTER MIDNIGHT: acetaminophen 650 mg tablet,extended release 1,300 mg PO BID Take evening before surgery acetaminophen 650 mg tablet,extended release 1,300 mg PO BID Other Notes If you have any questions please call us at [phone] or [phone] or [phone] or [phone]
--- NOTE | 2022-10-06 12:22 | Anesthesiology Consultation ---
Date of Service October 06, 2022 Assessment & Plan (1) Encounter for pre-operative examination: - COVID screening: Per assessment on 10/06: No known COVID-19 positive contacts or current COVID-19 related symptoms. Travel screen negative. Patient vaccinated. At surgeon discretion if preop Covid testing being done. - Outpatient joint assessment: Pt currently scheduled for inpatient pathway. If surgeon requests review for outpatient joint pathway, patient is not recommended candidate for outpatient joint program from anesthesia standpoint. - S/P Left TKA (02/18/17): SAB at L3/4 (x1 attempt) + PNB at [facility] Chart Review Chart Review: Acceptable Risk for Surgery and Patient seen in Pre Admission Testing Teaching & Discussion Pre-Anesthesia Teaching/Discussion Notes: Instructed NPO after midnight before surgery,except medications with 15 cc of water. Medication instructions provided according to the PAT guidelines. History Surgery Operation Date: 10/14/22 10:55 Proposed Procedures p Left Total Hip Arthroplasty - Faustino Hood MD Height/Weight Height: 5 ft 3 in Weight: 80.1 kg Allergies Allergy/AdvReac Type Severity Reaction Status Date / Time adhesive Allergy Mild Skin Verified 10/03/22 15:50 tearing, redness codeine Allergy Mild Itchy Verified 10/03/22 15:50 ferrous gluconate Allergy Unknown Unknown Verified 10/03/22 15:50 Penicillins Allergy Unknown Unknown Verified 10/03/22 15:50 Sulfa (Sulfonamide Allergy Unknown Unknown Verified 10/03/22 15:50 Antibiotics) Medications Home Medications Medication Instructions Recorded Confirmed Last Taken cnpnhpxo-evwq-zpyr 8 mg-folic 400 1 tab PO QAM 03/17/19 10/03/22 Unknown mcg-K 50 mcg-lutein 300 mcg tablet (Centrum Silver Women) acetaminophen 650 mg 1,300 mg PO BID 10/02/22 10/03/22 Unknown tablet,extended release guar gum 2 tbsp PO TID 10/02/22 10/03/22 Unknown meloxicam 15 mg tablet 15 mg PO QAM PRN pain 10/02/22 10/03/22 Unknown Past Medical History Medical History Chronic anemia H/O malignant neoplasm of endometrium 2016 > surgery Hip arthritis History of basal cell carcinoma Left foot pain Skin lesion of face Exercise / Class Metabolic Activity II 4-5 Yardwork/Stairs/Walk up hill (one FS (no CP, no SOB)) Past Family History Family History Mother Heart disease Father Hodgkins disease Heart disease Brother Heart disease Other No family history of adverse response to anesthesia Denies family history of Colon cancer Ovarian cancer Prostate cancer Myocardial infarction Breast cancer Past Surgical History Surgical History H/O total hysterectomy with removal of both tubes and ovaries 2015 (r/t cancer) History of arthroscopy of right knee History of basal cell carcinoma (BCC) excision History of foot surgery bone spur removal right and left heel History of tooth extraction all upper teeth removed History of total left knee replacement (TKR) Left TKA (02/18/17): SAB at L3/4 (x1 attempt) + PNB at [facility] History of total right knee replacement (TKR) S/P dilation and curettage x2 Status post hip surgery right APPLE Past Anesthesia History No Family Hx of Anesthesia Complications and Other (Awareness with previous knee replacement (toward end of procedure)) History of PONV No Hx of PONV and No Hx of Motion Sickness Social History Smoking Status: Never smoker Do You Dip or Chew Tobacco: No Hx Alcohol Use: No Hx Substance Use: No substance use type: does not use Review of Systems Patient denies chest pain, shortness of breath, dyspnea on exertion, fever, chills, cough, wheezing, palpitations. Physical Exam Vital Signs VITALS BP 145/83 P 70 TEMP 98.2 SP02 97%RA RESP 18 PHYSICAL Full cervical extension range of motion. Full TMJ range of motion. TMD 3.5 finger breaths Mallampati Score 2 Dentition: upper full denture Lungs: clear throughout to auscultation Cardiac: regular rate and rhythm, no murmurs noted Spine: normal Carotid arteries: negative bruit Extremities: no LE edema Lab Results Anesthesia Preop Results Results Anesthesia Widget: WBC 5.26 K/ul (4.8-10.8) 10/06/22 Hgb 10.4 g/dl (12.0-16.0) L 10/06/22 Hct 30.3 % (37.0-47.0) L 10/06/22 Plt 206 K/uL (130-400) 10/06/22 Na 139 mmol/L (136-145) 10/06/22 K 4.0 mmol/L (3.5-5.1) 10/06/22 Cl 105 mmol/L (98-107) 10/06/22 CO2 26 mmol/L (21-32) 10/06/22 BUN 33 mg/dl (6-23) H 10/06/22 Creat 0.88 mg/dl (0.6-1.2) 10/06/22 Glucose Level 79 mg/dl (70-99(Fasting)) 10/06/22 PT 11.2 Seconds (9.0-12.0) 10/06/22 PTT 28.2 Seconds (21.0-31.0) 10/06/22 INR 1.0 (0.9-1.1) 10/06/22 Blood Type O Positive 10/06/22 Antibody Screen NEGATIVE 10/06/22 Testing Electrocardiogram Date: 10/06/22 SB with PACs at 59bpm. "Otherwise normal ECG" Chest X-Ray Date: 10/06/22 FINDINGS: PA and lateral chest radiographs are compared to study dated 01/30/2017. The heart is mildly enlarged noting atherosclerotic calcification of the thoracic aorta. The pulmonary vasculature is noncongested. Chronic interstitial thickening similar to previous. There is mild bibasilar scarring/atelectasis. The lungs and pleural spaces are otherwise clear. There is no pneumothorax. The skeletal structures are osteopenic. The bony thorax appears intact. Degenerative change and hyperkyphosis is noted in the thoracic spine. IMPRESSION: No active disease in the chest. COVID-19 Risk Screen Screening Information COVID-19 Screen Date: 10/06/22 Exposure 21 Days Family/Household +COVID Last 21 Days: No Exposure 10 Days Any COVID Exposure Last 10 Days: No Symptoms Last 10 Days Experienced COVID Sx Last 10 Days: No + COVID 0-90 Days COVID + in Last 0-90 Days: No
[~2022-10-14 05:02] MED LIST changes: -ACET650T49 PO; -ACETAMINOPHEN 500 MG TAB PO SCH; +ALLERGY Noted to ORDERED Medication SCH; -AMOX500C3 PO; -BUPIVACAINE 0.25% 30 ML VIAL ONE; -BUPIVACAINE 0.5 % 5 MG/1 ML PF 10ML VIAL ONE; -BUPIVACAINE LIPOSOME 266 MG, BUPIVACAINE/EPINEPHRINE INJ 50 ML, SODIUM CHLORIDE 0.9% PF... INFIL SCH; -CALC500C3 PO; -CEFAZOLIN 2000MG IV PUSH 10 ML IV SCH; -EpINEphrine INJ 1MG/ML AMP 1 MG/ML AMP ONE; -FAMOTIDINE 20 MG TAB PO SCH; -GABAPENTIN 300 MG CAP PO SCH; -LACTATED RINGER'S 1000ML 1,000 ML IV SCH; -LACTATED RINGER'S 1000ML IV SCH; -METOCLOPRAMIDE HCL 10 MG TAB PO SCH; -MULT-1092 PO; -POLY335019 PO; -SCOPOLAMINE 1.5 MG TDSY TD SCH; -TRANEXAMIC ACID INJ 1,000 MG in SYRINGE 0 ML IV SCH
[2022-10-14] MEDS ORDERED: ACETAMINOPHEN 500 MG TAB PO SCH (06:00)
[2022-10-14] MEDS ORDERED: FAMOTIDINE 20 MG TAB PO SCH (06:00)
[2022-10-14] MEDS ORDERED: LR 60ML/HR IV SCH (06:00)
[2022-10-14] MEDS ORDERED: dexAMETHasone**PF** 10 MG/ML VIAL IV SCH (06:00)
[2022-10-14] MEDS ORDERED: ceFAZolin 2000MG 2,000 MG/15 ML SYR IV SCH (06:00)
[2022-10-14] MEDS ORDERED: TRANEXAMIC ACID 1,000 MG **IV Intra-op IV SCH (06:00)
[2022-10-14] MEDS ORDERED: LR 500ML BOLUS, THEN 15ML/HR IV SCH (06:00)
[2022-10-14] MEDS ORDERED: METOCLOPRAMIDE HCL 10 MG TABLET PO SCH (06:00)
[2022-10-14] MEDS ORDERED: CeleBREX 200 MG CAP PO SCH (06:00)
[2022-10-14] MEDS ORDERED: ceFAZolin 2,000 MG/15 ML IV PUSH IV ONE (06:05)
[2022-10-14] MEDS ORDERED: ROPIVACAINE 0.5% 5 MG/ML 30 ML VIAL ONE (06:12)
[2022-10-14] MEDS ORDERED: Nursing to Pharmacy Communication SCH (06:15)
[2022-10-14] MEDS ORDERED: ONDANSETRON INJ 2 MG/ML 2 ML VIAL ONE (06:32)
[2022-10-14] MEDS ORDERED: LIDOCAINE 2% 2 ML VIAL/AMP(20MG/ML) INFIL ONE (06:32)
[2022-10-14] MEDS ORDERED: PROPOFOL IV EMULSION 10 MG/ML 20 ML VIAL IV ONE (06:32)
[2022-10-14] MEDS ORDERED: MIDAZOLAM HCL 1 MG/ML 2ML VIAL ONE (06:33)
[2022-10-14] MEDS ORDERED: BUPIVACAINE/EPINEPHRINE 0.5% MPF 1:200,000 30 ML VIAL ONE (06:39)
[2022-10-14] MEDS ORDERED: HYDROmorphone INJ 2 MG/ML SYR/VIAL IV PRN (06:48)
[2022-10-14] MEDS ORDERED: fentaNYL citrate PF 100 MCG/2 ML VIAL IV PRN (06:48)
[2022-10-14] MEDS ORDERED: ATROPINE SULFATE 0.1 MG/ML 10ML SYR IV PRN (06:48)
[2022-10-14] MEDS ORDERED: ePHEDrine sulfate 50 MG/ML AMP IV PRN (06:48)
[2022-10-14] MEDS ORDERED: ONDANSETRON INJ 2 MG/ML 2 ML VIAL IV PRN ×2 (06:48→10:22)
--- NOTE | 2022-10-14 06:59 | History & Physical Bridge Note ---
Date of Service October 14, 2022 History & Physical Bridge Note I have examined the patient, reviewed the History & Physical and in the interval since the performance of the History & Physical I have noted the following changes of clinical significance: no changes noted
--- NOTE | 2022-10-14 08:45 | Operative Report ---
PG Post Operative Report Pre & Post Diagnosis Operation Date: 10/14/22 07:00 Pre-Op Diagnosis: Left Hip Degenerative Joint Disease Post-Op Diagnosis: Left Hip Degenerative Joint Disease I identified the patient and participated in the time-out.: Yes Procedure Operation Date: 10/14/22 07:00 Actual Procedures p Left Total Hip Arthroplasty(Left) - Faustino Hood MD Surgeon Faustino Hood MD Unindentured Apprentice Shaheen Hammonds PA-C Estimated Blood Loss 150 Findings Consistent with Post-Op Diagnosis Operative findings were advanced left hip DJD. She had extensive grade 4 bduh-ou-fvmw disease of the femoral head and acetabulum and flattening of the femoral head. Very sclerotic acetabulum. Specimens Left femoral head sent for pathology Anesthesia Type Spinal MAC Complications none Disposition Accompanied Patient To Recovery: No Indications Patient is an 82-year-old fairly healthy and active female whose had a several year history of increasing left hip pain discomfort is gotten significantly worse over the past year. She got to the point where she had to resort to using a cane to get around. X-rays of showed advanced left hip arthritis. She elected proceed with total hip arthroplasty. Description of Procedure Operative implants consist of: 1. Biomet G7 size 54 mm acetabular shell. 2. 6.5 cancellous acetabular screws 1 of 35 mm length and 120 mm length. 3. Radcliffe hole eliminator. 4. Highly cross-linked polyethylene liner with a 54 mm outer diameter, 36 mm inner diam with a powell placed inferior and posterior. 5. DePuy Karaya size 11 KLA femoral stem. 6. +1.5/36 mm ceramic articular ball. The patient was taken the operating, identified, placed on the operating table supine position. All contact areas were appropriately padded. IV antibiotics tried by anesthesia team. A spinal anesthetic been implemented holding area. Saleem catheter was placed in sterile fashion. The patient then placed in the right lateral decubitus position. An axillary roll was placed. A Stulberg hip positioner was used for positioning. The left hip and leg were then prepped and draped in usual sterile fashion. A posterolateral approach to the left hip was then performed a curvilinear incision centered over the greater trochanter. Sharp dissection scalp through subcutaneous tissue then move the IT band gluteal fascia the IT band gluteal fascia incised longitudinally in line with skin incision. The underlying greater bursa was excised. The piriformis and external rotators along with the hip joint capsule were then released from the posterior aspect of the hip as a single layer. The hip was internally rotated and dislocated. A femoral neck osteotomy cut was made with a Final Cut about 10 mm above the lesser trochanter. Femoral head was removed and sent for pathology. The femur was retracted anteriorly. Attention drawn the acetabulum. The acetabular labrum was excised. The pulmonary fat was excised. Sequential reaming the acetabular was then performed again with size 43 and progressing up to a 53. I reamed a little bit with a 54 reamer and then placed a 54 mm cup in about 40 degrees lateral opening and 20 degrees of anteversion. It was fixed with two 6.5 cancellous acetabular screws. Trial liner was placed. Attention drawn the femur. The proximal femur was entered with cookie-cutter followed by canal finder. I then broached beginning with a size 8 and progressed up to 11 Excellent fit at 11. We then trialed the hip. The +5 articular ball seemed a little bit too tight and the +1.5 cm recreate leg lengths appropriately. It was stable. I did elect to place a powell inferior and posterior to maximize her stability in flexion. We elect to place these implants. All trial implants were removed. Radcliffe hole eliminator was placed. Highly cross-linked polyethylene liner was placed. A I did place a powell on the liner and placed inferior and posterior. A size 11 KLA femoral stem was impacted in position. +1.5/36 mm ceramic articular ball was placed. Hip was located and once again found to be stable. Attention then drawn toward closing. The wounds irrigated coconuts of pulsatile lavage solution. I did inject locally with 60 cc of half percent Marcaine with epinephrine. The posterior capsule and external rotators then repaired through drill holes in the posterior trochanter with #2 Tycron suture as a single layer. The IT band gluteal fascia then closed in 1 PDS suture running fashion for subcutaneous tissues then closed in 2 layers with deep layer #1 Vicryl suture in the subcutaneous tissues with 2- 0 Dexon suture in a buried interrupted fashion. Skin was closed skin barry. Leg was then cleaned and dried and a sterile dressing was Xeroform, 4 fours, ABD pad and foam tape was applied. Patient then transferred to the recovery room in stable condition. Patient tolerated procedure well and there were no complications. Shaheen Hammonds, my physician medical support assistant, was present for the entire procedure. His assistance was required for proper patient positioning, prepping and draping, surgical exposure, retraction, perform the technical details of the operation, placing the implants, closure of the incision site and placement of sterile bandage. I attest to the content of the Intraoperative Record and any orders documented therein. Any exceptions are noted below.
--- NOTE | 2022-10-14 09:10 | Anesthesiology Progress Note ---
Date of Service October 14, 2022 Anesthesia Post Procedure Vital Signs Vital Signs: Temp Pulse Resp BP Pulse Ox O2 Del Method 10/14/22 09:00 65 18 124/74 99 Room Air 10/14/22 08:45 67 18 117/57 L 98 Room Air 10/14/22 08:36 36.0 C L 72 18 114/60 96 Room Air 10/14/22 05:46 36.7 C 65 20 178/87 H 98 Room Air Pain Intensity Left Hip: Pain Intensity: 0 Transfer of Care Handoff Completed per policy Notes Mental Status: alert / awake / arousable and participated in evaluation Patient Amnestic to Procedure: Yes Nausea / Vomiting: adequately controlled Pain: adequately controlled Airway Patency, RR, SpO2: stable & adequate BP & HR: stable & adequate Hydration State: stable & adequate Neuraxial Anesthesia: was administered and sensory block is resolving Anesthetic Complications: no major complications apparent and Pt Satisfied with anesthetic care
--- NOTE | 2022-10-14 09:27 | XRay Report ---
XR hip 1V LT w pelvis CLINICAL HISTORY: Postoperative evaluation. COMPARISON: Left hip radiographs October 02, 2022. FINDINGS: Alignment of the total left hip arthroplasty is anatomic. There is no periprosthetic fract ure. No unexpected radiopaque foreign bodies are present. There are skin barry. Right hip arthropla sty is intact. IMPRESSION: Expected findings following total left hip arthroplasty. ACT 112: Negative or not required by law. Electronically signed by: Hiren Lovett M.D. 10/14/2022 9:26 AM
[2022-10-14] MEDS ORDERED: SENNA 8.6 MG TAB PO SCH ×2 (10:22→21:00)
[2022-10-14] MEDS ORDERED: HYDROmorphone INJ 0.5 MG/0.5 ML SYR IV PRN (10:22)
[2022-10-14] MEDS ORDERED: MAGNESIUM HYDROXIDE SUSP 30 ML UDC PO PRN (10:22)
[2022-10-14] MEDS ORDERED: NALOXONE HCL 0.4 MG/1 ML VIAL/CARP IV PRN (10:22)
[2022-10-14] MEDS ORDERED: traMADol HCL 50 MG TABLET PO PRN (10:22)
[2022-10-14] MEDS ORDERED: bisacodyL 10 MG SUPP PR PRN (10:22)
[2022-10-14] MEDS ORDERED: NON-FORMULARY MEDICATION (Multivit-Min-Iron-Fa-Vit K-Lut [Centrum Silver Women] 8 mg iron- PO SCH (10:22)
[2022-10-14] MEDS ORDERED: METOCLOPRAMIDE HCL INJ 5 MG/ML 2 ML VIAL IV PRN (10:22)
[2022-10-14] MEDS ORDERED: ALUMINUM/MAGNESIUM SUSP 30 ML UDC PO PRN (10:22)
[2022-10-14] MEDS ORDERED: GUAR GUM PO SCH (10:22)
[2022-10-14] MEDS: SODIUM CHLORIDE 0.9% 1000ML 1,000 ML IV SCH ×2 (11:49→22:24)
[2022-10-14] MEDS: KETOROLAC TROMETHAMINE 15 MG/ML VIAL IV SCH ×3 (11:51→23:59)
[2022-10-14] MEDS: DOCUSATE SODIUM 100 MG CAP PO SCH ×2 (11:51→20:31)
[2022-10-14] MEDS: ASPIRIN 81 MG ECTAB PO SCH ×2 (11:51→20:32)
[2022-10-14] MEDS: MULTIVITAMIN TAB PO SCH (11:51)
[2022-10-14] MEDS: ACETAMINOPHEN 500 MG TAB PO SCH ×2 (13:49→20:31)
[2022-10-14] MEDS ORDERED: TRANEXAMIC ACID / 0.7% NACL 1,000 MG/100 ML BAG IV SCH (14:30)
[2022-10-14] MEDS: ceFAZolin 1000MG 1,000 MG/7.5 ML SYR IV SCH ×2 (14:33→23:59)
[2022-10-15] MEDS: KETOROLAC TROMETHAMINE 15 MG/ML VIAL IV SCH ×2 (05:43→12:04)
[2022-10-15] MEDS: ASPIRIN 81 MG ECTAB PO SCH (07:31)
[2022-10-15] MEDS: MULTIVITAMIN TAB PO SCH (07:31)
[2022-10-15] MEDS: DOCUSATE SODIUM 100 MG CAP PO SCH (07:32)
[2022-10-15] MEDS: ACETAMINOPHEN 500 MG TAB PO SCH (07:32)
[2022-10-15 07:51] LABS: Basophils # (auto) 0.01 K/uL (0-0.2); Basophils % (auto) 0.1 %; Eosinophils # (auto) 0.02 K/uL (0-0.50); Eosinophils % (auto) 0.2 %; Hematocrit (blood only) 27.4 % (37.0-47.0); Hemoglobin 9.5 g/dl (12.0-16.0); Immature Granulocytes # (auto) 0.03 K/uL (0.01-0.20); Immature Granulocytes % (auto) 0.4 %; Lymphocytes # (auto) 1.25 K/uL (1.2-3.4); Lymphocytes % (auto) 14.7 %; Mean Corpuscular Hemoglobin 31.9 pg (25.0-34.0); Mean Corpuscular Hgb Conc 34.7 g/dL (32.0-36.0); Mean Corpuscular Volume 91.9 fL (80.0-100.0); Mean Platelet Volume 10.3 fL (9.4-12.4); Monocytes # (auto) 0.85 K/uL (0.11-0.59); Neutrophils # (auto) 6.36 K/uL (1.40-6.50); Neutrophils % (auto) 74.6 %; Platelet Count 187 K/uL (130-400); RDW Coefficient of Variation 13.2 % (11.5-14.5); RDW Standard Deviation 44.2 fL (36.4-46.3); Red Blood Count 2.98 M/uL (4.20-5.40); White Blood Count 8.52 K/ul (4.8-10.8)
[2022-10-15] MEDS ORDERED: dexAMETHasone 10 MG in SYRINGE 0 ML IV SCH (08:00)
[2022-10-15 08:14] LABS: BUN Creatinine Ratio 25.8 (10-20); Calcium 9.1 mg/dl (8.6-10.3); Creatinine Clr Calc Pharmacy 45.8 ml/min; Est GFR (African American) 63.9 ml/min; Est GFR (Non-African American) 55.2 ml/min; Potassium 3.8 mmol/L (3.5-5.1)
--- NOTE | 2022-10-15 11:47 | Orthopedic Progress Note ---
Date of Service October 15, 2022 Assessment & Plan (1) Status post total hip replacement, left: Patient is a now postop day 1 from left total hip replacement doing. Doing remarkably well. Anxious to get home. No chest pain or shortness of breath. Denies any significant hip pain. Therapy went well. Hip is located. She is neurologically intact. Plan: 1 DVT prophylaxis including thigh-high teds SCDs, and aspirin twice a day. 2. PT OT. She can fully weight-bear as tolerated. Does need to obey hip preca utions. 3. Pain control doing okay with current pain regimen. Really having minimal pain currently. 4. Disposition plan to discharge charge to home with home health today Subjective . 10-year-old female postop day 1 from a total hip replacement. That she is doing quite well. She has been up and walk around. She went to therapy. She is anxious to get home. Pain is well controlled. Reports minimal pain. No chest pain or shortness of breath. Not feeling dizzy or lightheaded. Review of Systems All systems reviewed & are unremarkable except as noted in HPI & below. Physical Exam . Physical examination of the hip reveals the dressing clean dry and intact. Thigh is soft and supple. Leg lengths are equal. She can dorsiflex and plantarflex her foot appropriately. She is neurologically intact. Neck trachea midline, no thyromegaly Respiratory normal respiratory effort, lungs clear to auscultation Cardiovascular RRR, no murmur, no edema Gastrointestinal (Abdomen) normal bowel sounds, soft, nontender, no hepatosplenomegaly Results & Data Results & Data Laboratory Results . Hemoglobin 9.5 hematocrit 27.4. Electrolytes are stable. Diagnostic Findings . PG Care Time/CCT Total # of Minutes Spent Total Time Spent with Patient: Total time spent is greater than 50% in coordination of care (as documented) at patient's floor/unit and/or counseling patient: Coding Level of Care Code 28913 Post Operative Follow-Up Diagnoses Status post total hip replacement, left Z96.642
== END 2022-10-15 13:15 | disposition home health service (06) ==
LOC: ASU 05:02 → 3E 05:02
DX: I10 Essential (primary) hypertension; M16.12 Unilateral primary osteoarthritis, left hip; D64.9 Anemia, unspecified

== ENCOUNTER 2023-10-02 09:51 | Inpatient (IN) ==
--- NOTE | 2023-10-02 09:47 | Emergency Department Note ---
History of Present Illness General Chief complaint: Chest Pain Stated complaint: CHEST PAIN Source: patient, EMS (I did talk to EMS prior to arrival and gave ALS medical command), RN notes reviewed and old records reviewed (08/31/23-primary care office visit for chronic pain in the shoulders and joints) Mode of arrival: EMS Limitations: no limitations History of Present Illness This patient was brought in by EMS after having intermittent chest pain it comes and goes she had several episodes over the last couple days no history of cardiac disease EMS called me prior to arrival they had given her aspirin and she had stable vital signs and was slightly on the hypertensive side. The patient had declined nitroglycerin. They did fax me the EKG. Her anterior leads look abnormal in V1 and V2 with some small elevation with T waves and also Q waves. I compared this to her old one and it definitely looked different I had him repeat a second 1 and it looks slightly worse particular in V3 so I did call the heart alert prehospital. When the patient arrived the residential care officer and the cath team arrived as they were putting the patient in the bed. The patient says her chest pain feels better after the nitro. She tells me she has been having "indigestion" for the last couple days and has no history of similar. Denies cardiac history or history of kidney problems. No fall or trauma no shortness of breath or diaphoresis. Home Medications Medication Instructions Recorded Confirmed Type ybtyslke-zohj-ecxk 8 mg-folic 400 1 tab PO QAM 03/17/19 08/31/23 History mcg-K 50 mcg-lutein 300 mcg tablet (Centrum Silver Women) acetaminophen 500 mg tablet 1,000 mg (2 x 500 mg) PO TID pain 10/12/22 08/31/23 Rx (Tylenol Extra Strength) 30 days #180 tabs meloxicam 15 mg tablet 15 mg PO DAILY PRN 03/04/23 08/31/23 History Allergies Allergy/AdvReac Type Severity Reaction Status Date / Time adhesive Allergy Mild Skin Verified 08/31/23 10:43 tearing, redness codeine Allergy Mild Itchy Verified 08/31/23 10:43 ferrous gluconate Allergy Unknown itchy Verified 08/31/23 10:43 Sulfa (Sulfonamide Allergy Unknown Unknown Verified 08/31/23 10:43 Antibiotics) Past Med/Surg History Problem List Elevated troponin I level (Acute) Chest pain (Acute) Acute ST elevation myocardial infarction (STEMI) (Acute) Right shoulder pain Fracture of 5th metatarsal (~08/25/23) Minimally displaced fracture within the mid shaft of the right fifth metatarsal-saw orthopedics-pain started about 2 weeks earlier due to a misstep when she was working in her yard. Displaced fracture Right foot pain IPMN (intraductal papillary mucinous neoplasm) noted on CT 06/13, benign Vaginal bleeding Cataract Preop general physical exam Chronic back pain Left foot pain (Acute) Skin lesion of face (Acute) Routine gynecological examination H/O malignant neoplasm of endometrium 2016 > surgery Degenerative joint disease of left hip Trochanteric bursitis, left hip Anemia Right rotator cuff tendinitis History of basal cell carcinoma Hip arthritis Status post total hip replacement, left Medical History Chronic anemia Encounter for pre-operative examination Surgical History History of foot surgery bone spur removal right and left heel History of arthroscopy of right knee History of total left knee replacement (TKR) Left TKA (02/18/17): SAB at L3/4 (x1 attempt) + PNB at [facility] History of total right knee replacement (TKR) History of basal cell carcinoma (BCC) excision History of tooth extraction all upper teeth removed H/O total hysterectomy with removal of both tubes and ovaries 2015 (r/t cancer) Status post hip surgery right APPLE S/P dilation and curettage x2 Family History Mother Heart disease Father Hodgkins disease Heart disease Brother Heart disease Other No family history of adverse response to anesthesia Denies family history of Colon cancer Ovarian cancer Prostate cancer Myocardial infarction Breast cancer Social History Smoking Status: Never smoker Second Hand Exposure: No; Do You Dip or Chew Tobacco: No; Hx Alcohol Use: No Hx Substance Use: No Preferred Language: Lithuanian Communication Ability: Effective Visual Impairment: No Limitations Hearing Ability: Normal Qm Nurse Required: No Beliefs That Will Affect Care: None marital status: Current Living Situation: Spouse current occupational status: retired How many Children do You have: 3 Feels Safe at Home: Yes Childhood Exposure to Second-Hand Smoke: Yes Diet: regular Diet Comment: no specific diet caffeine: Yes Dental Care, Regularly: Yes Physical Activity Frequency: 3-4 Times per Week Seatbelt Use: always Sunscreen Use: No Do you think of yourself as: straight/heterosexual Assistive Devices: Cane, Denture - Upper and Glasses Review of Systems A total of 10 systems reviewed and were otherwise negative Physical Exam Vital Signs Vital Signs - 24 hr 10/02/23 09:55 10/02/23 09:59 Temperature 36.9 C Temperature Source Oral Pulse Rate 67 Respiratory Rate 18 Blood Pressure 169/96 H Blood Pressure Mean 120 Pulse Oximetry 99 99 Oxygen Delivery Method Room Air Room Air Sepsis Recent Fever Within 48 Hours No Sepsis New/Unexplained Change in Mental Status No Sepsis Action Taken by Nursing No Action Required General: Well developed well nourished older female who appears in no acute distress, breathing comfortably on room air. Normal speech HEENT: Normal cephalic atraumatic. Pupils are equal round and reactive to light. Extraocular movements are intact. Oropharynx is pink with moist mucous membranes. No swelling of the mouth lips or tongue. Neck: Supple with a midline trachea. No meningeal signs or stiffness, no JVD or bruits. No Stridor. Chest: Clear to auscultation bilaterally. No wheezes or rhonchi. No increased work of breathing. Heart: Regular rate and rhythm without murmurs or gallops. Abdomen: Soft nontender, nondistended without rebound guarding or rigidity. Extremities: No cyanosis clubbing or edema. No calf tenderness or assymetry Spine/Back. Non tender to palpation. No CVA tenderness Skin: Good turgor without rashes. Neurologic exam: Cranial nerves two through 12 are intact. Motor and sensation are intact and symmetrical throughout. Course Administered Medications Discontinued Medications Ticagrelor (Ticagrelor 90 Mg Tab) Confirm Administered Dose 90 mg .ROUTE .STK- MED ONE Stop: 10/02/23 09:58 Last Admin: 10/02/23 10:10 Dose: 180 mg Documented By: [facility] Medical Decision Making Differential Diagnosis Acute coronary syndrome, STEMI, aortic pathology, infection, electrolyte or metabolic abnormality Medical Records Attestation: I reviewed the patient's medical records. Home Medications Current Medication List: was personally reviewed by me Laboratory Data Attestation: I reviewed the patient's lab results. 10/02/23 09:59 10/02/23 09:59 Lab Results 10/02/23 10/02/23 Range/Units 09:59 10:04 WBC 7.29 (4.8-10.8) K/ul RBC 3.67 L (4.20-5.40) M/uL Hgb 11.1 L (12.0-16.0) g/dl POC Hgb 11.2 L (12.0-16.0) g/dl Hct 33.1 L (37.0-47.0) % POC Hct 33 L (37-47) % MCV 90.2 (80.0-100.0) fL MCH 30.2 (25.0-34.0) pg MCHC 33.5 (32.0-36.0) g/dL RDW Std Deviation 46.7 H (36.4-46.3) fL RDW Coeff of Shashank 14.2 (11.5-14.5) % Plt Count 222 (130-400) K/uL MPV 10.1 (9.4-12.4) fL Immature Gran % (Auto) 0.1 % Neut % (Auto) 59.1 % Lymph % (Auto) 28.7 % Wilbarger % (Auto) 10.4 % Eos % (Auto) 1.2 % Baso % (Auto) 0.5 % Neut # (Auto) 4.30 (1.40-6.50) K/uL Lymph # (Auto) 2.09 (1.20-3.40) K/uL Wilbarger # (Auto) 0.76 H (0.11-0.59) K/uL Eos # (Auto) 0.09 (0.00-0.50) K/uL Baso # (Auto) 0.04 (0.00-0.20) K/uL Immature Gran # (Auto) 0.01 (0.01-0.20) K/uL PT 10.7 (9.0-12.0) Seconds INR 1.0 (0.9-1.1) APTT 25 (21-31) Seconds PTT Ratio 0.9 POC Sodium 140 (135-144) mmol/L Sodium 138 (136-145) mmol/L POC Potassium 4.0 (3.3-5.0) mmol/L Potassium 4.0 (3.5-5.1) mmol/L POC Chloride 105 (101-112) mmol/L Chloride 104 (98-107) mmol/L Carbon Dioxide 23 (21-32) mmol/L POC Total CO2 21 L (24-31) mmol/L Anion Gap 11 (3-11) POC Anion Gap 19.0 (16-25) mmol/L POC BUN 22 H (7-18) mg/dl BUN 24 H (6-23) mg/dl Creatinine 1.04 (0.6-1.2) mg/dl POC Creatinine 1.0 (0.6-1.3) mg/dl Est Cr Clr Drug Dosing 43.2 ml/min Est GFR ( Amer) 58.4 ml/min Est GFR (Non-Af Amer) 50.3 ml/min BUN/Creatinine Ratio 23.1 H (10-20) Glucose 102 H (70-99(Fasting)) mg/dl POC Glucose (other) 106 H (70-99) mg/dl Calcium 9.8 (8.6-10.3) mg/dl POC Ioniz Calcium Lilliana 1.13 (1.12-1.32) mmol/l Total Bilirubin 0.7 (0.2-1.0) mg/dl AST 32 (13-39) U/L ALT 13 (7-52) U/L Alkaline Phosphatase 64 (34-104) U/L Troponin I High Sens 2316.7 H* (0-14) pg/ml Total Protein 7.3 (6.0-8.3) gm/dl Albumin 4.4 (3.4-5.0) gm/dl Globulin 2.9 (2.5-4.0) gm/dl Albumin/Globulin Ratio 1.5 (0.9-2) Lipase 19 (11-82) U/L Imaging Data My Impression: Chest x-ray ECG Data Attestation: I personally reviewed and interpreted this ECG as follows: Indication: + chest pain Rate (beats per minute): 64 Rhythm: + normal sinus ECG Intervals/blocks: + Normal QRS, + Normal QT and + Normal SD ECG ST segments: + ST elevation (Anterior) and + T-wave inversions (Anterior) ECG Findings: no PACs or no PVCs Comparison ECG Date: from (Prehospital EKG #2 no change) Additional Comments: Prehospital EKG #1 shows normal sinus rhythm with a ST segment elevation anteriorly with some T wave inversions. When I compare the prehospital EKG to her old EKG done here, the anterior changes are new Prehospital EKG #2 shows similar findings compared to EKG #1 with exception of now there is elevation and worsening in lead V3 MDM Narrative This patient comes in as scribed above she has had intermittent chest pain her EKG was concerning in the prehospital setting a second 1 looks even more progressive, additionally it looks different than her old EKG that we have in the computer. She had received aspirin initially declined nitro. I did recommend she did take the nitro prior to arrival I did call heart alert prior to her arrival. The nitro seem to have helped the patient. The patient arrived in the heart alert team was there to after they put her in the bed and were getting her hooked up. Her EKG here shows concerning anterior changes. They are going to take her to the [facility]. I did discuss case with Dr. Ramsay who is the residential care officer and at the bedside. I did call and talk to her daughter at home at length and let her know of the situation. I also discussed the case with Dr. Braulio Brandt who is the [facility] hospitalist as they will be admitting the patient after the patient is done in the [facility]. after the patient left the ED the labs did come back and the patient has no fever or white count to suggest infection. She does have a mild anemia at 11. She does have an elevated troponin significantly over 1999. The [facility] team did load her with Soledad and have taken emergently to the [facility] Continuous honey grader and blender: Orders placed in EMR for continuous cardiac monitoring: Pulm evaluation patient noted to be in normal sinus rhythm rate 65 Impression & Plan Acute ST elevation myocardial infarction (STEMI), Chest pain, Elevated troponin I level Discharge Plan Visit Data Chief Complaint: Chest Pain Stated Complaint: CHEST PAIN ED Provider: Shaheen Goodman Discharge Problem: Acute ST elevation myocardial infarction (STEMI), Chest pain, Elevated troponin I level Discharge Problem: Acute ST elevation myocardial infarction (STEMI) Qualifiers: Involved coronary artery: unspecified coronary artery Qualified Code(s): I21.3 - ST elevation (STEMI) myocardial infarction of unspecified site Chest pain Qualifiers: Chest pain type: precordial pain Qualified Code(s): R07.2 - Precordial pain
[2023-10-02] MEDS: TICAGRELOR 90 MG TAB ONE (10:10)
[2023-10-02 10:16] LABS: iSTAT Hemoglobin 11.2 g/dl (12.0-16.0); iSTAT Ionized Calcium 1.13 mmol/l (1.12-1.32)
[2023-10-02 10:20] LABS: Basophils # (auto) 0.04 K/uL (0.00-0.20); Basophils % (auto) 0.5 %; Eosinophils # (auto) 0.09 K/uL (0.00-0.50); Eosinophils % (auto) 1.2 %; Hematocrit (blood only) 33.1 % (37.0-47.0); Hemoglobin 11.1 g/dl (12.0-16.0); Immature Granulocytes # (auto) 0.01 K/uL (0.01-0.20); Immature Granulocytes % (auto) 0.1 %; Lymphocytes # (auto) 2.09 K/uL (1.20-3.40); Lymphocytes % (auto) 28.7 %; Mean Corpuscular Hemoglobin 30.2 pg (25.0-34.0); Mean Corpuscular Hgb Conc 33.5 g/dL (32.0-36.0); Mean Corpuscular Volume 90.2 fL (80.0-100.0); Mean Platelet Volume 10.1 fL (9.4-12.4); Monocytes # (auto) 0.76 K/uL (0.11-0.59); Monocytes % (auto) 10.4 %; Neutrophils % (auto) 59.1 %; Platelet Count 222 K/uL (130-400); RDW Coefficient of Variation 14.2 % (11.5-14.5); RDW Standard Deviation 46.7 fL (36.4-46.3); Red Blood Count 3.67 M/uL (4.20-5.40); White Blood Count 7.29 K/ul (4.8-10.8)
[2023-10-02 10:36] LABS: Albumin Globulin Ratio 1.5 (0.9-2); Albumin Level 4.4 gm/dl (3.4-5.0); BUN Creatinine Ratio 23.1 (10-20); Bilirubin,Total 0.7 mg/dl (0.2-1.0); Calcium 9.8 mg/dl (8.6-10.3); Creatinine Clr Calc Pharmacy 43.2 ml/min; Est GFR (African American) 58.4 ml/min; Est GFR (Non-African American) 50.3 ml/min; Globulin 2.9 gm/dl (2.5-4.0); Total Protein 7.3 gm/dl (6.0-8.3)
[2023-10-02 10:43] LABS: Partial Thromboplastin Ratio 0.9; Partial Thromboplastin Time 25 Seconds (21-31); Prothrombin Time 10.7 Seconds (9.0-12.0)
[2023-10-02 10:46] LABS: Troponin I High Sensitivity 2316.7 pg/ml (0-14)
[2023-10-02] MEDS: MIDAZOLAM HCL 1 MG/ML 2ML VIAL ONE ×2 (11:15→11:18)
[2023-10-02] MEDS: fentaNYL citrate PF 100 MCG/2 ML VIAL ONE (11:16)
[2023-10-02] MEDS: HEPARIN (PORCINE) 1000 UNIT/ML 10 ML (CATH LAB USE ONLY) ONE (11:16)
[2023-10-02] MEDS: OPTIRAY 350 ONE (11:17)
[2023-10-02] MEDS: niCARdipine HCL INJ 2.5 MG/ML 10 ML AMP ONE (11:18)
[2023-10-02] MEDS: NITROGLYCERIN/D5W 100MCG/ML 20ML SYR ONE (11:18)
[2023-10-02] MEDS ORDERED: NITROGLYCERIN SL 0.4 MG/TAB TAB SL PRN (11:19)
[2023-10-02] MEDS ORDERED: ONDANSETRON INJ 2 MG/ML 2 ML VIAL IV PRN (11:19)
[2023-10-02] MEDS ORDERED: ATROPINE SULFATE 0.1 MG/ML 10ML SYR IV PRN (11:19)
--- NOTE | 2023-10-02 11:28 | Post Anesthesia Assessment ---
Date of Service October 02, 2023 Post Sedation Assessment Vital Signs Temp Pulse Resp BP Pulse Ox O2 Del Method 10/02/23 09:59 36.9 C 67 18 169/96 H 99 Room Air 10/02/23 09:55 99 Room Air Recovery Score Activity: Moves 4 extremities Respiration: Deep Breath/Cough Circulation: +/-20% PreAnes Value Consciousness: Fully Awake Oxygen Saturation: > 92% On Room Air Discharge Sedation Level of Care: Fast Track Phase II Post Sedation Plan On clinical assessment, the patient appears to have tolerated the sedation without complications. Patient is recovering as anticipated. Patient will continue to be monitored by nursing and may be discharged when sedation discharge criteria are met per below protocol. Upon Completions of procedure up to 15 minutes continue every 5 minute vital signs and the P.A.R. score; then discharge to a Phase I or Fast Track to Phase II per the following guidelines: * Discharge Patient to appropriate Phase II area if PAR is 8 or greater or return to pre- procedure baseline. The post - procedure orders will be as directed. * If PAR score is less than 8 or not return to pre-procedure baseline then patient will follow Phase I monitoring till PAR is reached for Phase II. The Phase I may be done in procedure room or may call to secure a Phase I area. * If naloxone or flumazenil are used for reversal, hold in Phase I for continued monitoring from when last reversal dose was given for a minimum of 60 minutes or longer pending the nurse and/or physician discretion of patient condition before discharge to Phase II. Please call the Sedation Physician to re-evaluate and complete post-note for discharge to Phase II area. Do NOT discharge from procedure sedation or Phase 1 until post- sedation evaluation note is complete by procedure /sedation MD Sedation Discharge Instructions to be given to the patient at discharge to home. [facility] Procedure Codes (Charges) Indication for Procedure Indication for procedure: ST elevation SD Sedation/Anesthesia Procedure 1: Sedation/Anesthesia: 56998 Mod Sedation by the same physician;Init15 Min Child Age 5 & Up (Initial 15 minutes, start time 1011) Total Sedation Time (minutes): 63 Procedure 2: Sedation/Anesthesia: 35144 Mod Sedation by the same physician; Ea [id number] Minutes (Additional 48 minutes, end time 1114) Total Sedation Time (minutes): 63
--- NOTE | 2023-10-02 11:31 | Cardiac Catheterization ---
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: Transit Planner Cardiac Status Clinical evaluation leading to the procedure CAD Presenation: STEMI Anginal Classification: CCS IV Heart Failure: No Cardiogenic Shock within 24 Hours: No Cardiac Arrest within 24 Hours: No Imaging Studies Past 6 Months: No STEMI OR Non-STEMI Symptom Onset Date: 10/02/23 Symptom Onset Time: 09:00 Coronary Anatomy Dominant: Right Left Main (% Stenosis): Proximal (20-30%) LAD (% Stenosis): Proximal (99% with thrombus and ulcerated plaque) and Distal (30%) D1 (% Stenosis): Normal D2 (% Stenosis): Normal Circumflex (% Stenosis): Proximal (40%) and Mid (20%) OM1 (% Stenosis): Normal OM2 (% Stenosis): Normal L PL1 (% Stenosis): Normal L PL2 (% Stenosis): Normal RCA (% Stenosis): Proximal (30%), Mid (20%) and Distal (95%) R PDA (% Stenosis): Normal R PL1 (% Stenosis): Normal Diagnostic Physicians Name: Faustino Ramsay MD, PhD Closure Device Percutaneous Entry Location: Both radial and femoral Closure Device: Angio-Seal and Radial Band Recommendations: Medical Therapy and/or Counseling and PCI without planned CABG PCI Indication: PCI for STEMI - Stable Lesion Segment Name: Proximal RCA Culprit Artery: Yes Stenosis Prior to Rx (%): 99% Chronic Total Occlusion: No Pre-Procedure UNA Flow: 1 Previously Treated Lesion: No Lesion Complexity: Non-High/Non-C Lesion Length (mm): 12 Thrombus Present: Yes Bifurcation Lesion: Yes Guidewire Across Lesion: Yes Lesion #2 Segment Name: Distal RCA Culprit Artery: No Stenosis Prior to Rx (%): 95% Chronic Total Occlusion: No Pre-Procedure UNA Flow: 3 Previously Treated Lesion: No Lesion Complexity: Non-High/Non-C Lesion Length (mm): 10 Thrombus Present: No Bifurcation Lesion: No Guidewire Across Lesion: Yes Intraprocedure Events Significant Disection: No Perforation: No Cardiac Cath Procedure Full Procedure Date October 02, 2023 Pre-Procedure Diagnosis Pre-Procedure Diagnosis: STEMI AUC Score AUC Score: 09 Post-Procedure Diagnosis Post-Procedure Diagnosis: Severe CAD and Successful PCI Procedure(s) Performed Procedure(s) Performed: Coronary Angiography and Drug Eluting Stent Loop Cutter Faustino Ramsay MD, PhD Estimated Blood Loss Estimated Blood Loss: 10 cc Medication(s) Medication(s): Fentanyl, Heparin, Lidocaine 1%, Nicardipine, Nitroglycerin and Versed Summary of Findings Brief description: Patient was brought to the cardiac catheterization suite where she was shaved and prepped in a sterile fashion. Sedated using IV Versed and fentanyl. Soft t issues of the right wrist were anesthetized using 2 mL of 1% Xylocaine. The right radial artery was accessed using a modified Seldinger technique and a 6 [place] radial artery glide sheath was placed. Patient was provided anticoagulation with IV heparin and antispasmodics including nicardipine and nitroglycerin. All catheters were advanced and exchanged over a 0.035 J-tip wire. Left coronary angiography in orthogonal views with a 5 [place] Iola 4 diagnostic catheter. We proceeded immediately with PCI of the LAD. ACT was checked and additional heparin was provided as needed to maintain ther apeutic anticoagulation. A 6 [place] EBU guide catheter was used to engage the left main coronary. A BMW dorsal guidewire was advanced and positioned distally in the LAD. The lesion was predilated using a 2.5 x 12 mm trek balloon up to 14 robert. PCI with a 3.0 by 18 [place] drug-eluting stent deployed at 12 robert and a second inflation to 14 robert. Stent balloon removed. Postdilated in-stent with a 3.25 x 9 mm NC sprinter balloon at 15 robert proximally and 12 robert in the midsegment. Balloon was then removed. Coronary angiography performed in orthogonal views with the wire in and out. Guide catheter was then removed. We attempted to perform right coronary angiography with a 5 [place] JR4 diagnostic catheter, then with a 5 [place] JR 5 diagnostic catheter, and finally with a 4 [place] JR4 diagnostic catheter but were unsuccessful. Decision was made to complete the diagnostic portion from the groin approach. Catheters were removed. Right femoral artery was accessed using a micropuncture kit and fluoroscopic guidance. The micropuncture sheath was then exchanged for a 5 [place] femoral artery sheath. A 5 [place] JR4 diagnostic cath was advanced over the J-wire and used to engage the right coronary. Right coronary angiography was performed in orthogonal views. Decision was made to proceed with PCI of the distal RCA branch. The diagnostic catheter was removed. ACT was checked and additional heparin was provided as needed to maintain therapeutic anticoagulation. 5 [place] femoral artery sheath was exchanged for a 6 [place] femoral artery sheath. A 6 [place] JR4 guide catheter was advanced over the wire and then used to engage the right coronary artery. A BMW dorsal guidewire was advanced through the RCA and positioned distally in the posterolateral branch. Lesion was predilated using a 2.0 x 12 mm mini trek balloon at 8 robert. The balloon was then removed. PCI with a 2.25 x 15 mm [place] drug-eluting stent positioned across the lesion and deployed at 12 robert. Stent balloon removed. Coronary angiography performed in orthogonal views with and without the wire. Guide catheter was removed over the J-wire. Limited right femoral artery angiography was performed to evaluate for closure. Findings were favorable, therefore, the femoral artery sheath was exchanged for a 6 [place] Angio-Seal closure device. This was deployed in the recommended fashion. We obtained immediate hemostasis and the patient remained hemodynamically stable. The radial artery sheath was then removed and hemostasis was obtained using the TR band. Patient was then returned to the recovery area with plans for admission to the ICU. This ended the case. Coronary angiography findings: DCW-lprue-cwkrdrn vessel bifurcating into LAD and circumflex. There is a proximal napkin ring like lesion less than 20 to 30% stenosis. JWL-pwdgf-ffkyfjg and transapical. Proximal disease of 99% with a thrombotic ulcerated lesion just before the first diagonal and septal branch. UNA I flow distal to the lesion. Mid segment has luminal irregularities. Provides a large branching second diagonal which is disease-free. The distal LAD remains relatively large and there is a focal 30% stenosis at a branch point but otherwise no significant lesions. GIy-zbpxo-gikqkia and nondominant. Proximal segment with diffuse mild disease and a more focal lesion just before the first OM appearing to be 40% narrowed. First OM is medium caliber with mild ostial disease. Mid circumflex in the AV groove has mild less than 20% stenosis and then provides a large multi branching OM 2. This has mild luminal irregularities. Distal AV groove circumflex becomes medium in caliber terminating as 2 small posterolateral branches. KEQ-ogdyp-vodwfyx and dominant vessel. Proximal focal 30% narrowing. Then at the transition of the mid segment there is another focal 20% stenosis. The distal RCA just before the bifurcation has a hazy 95% stenosis. The vessel then branches into the PDA and a multi branching posterolateral. PDA is normal and the proximal posterolateral has mild disease before it narrows. PCI of LAD- 0% residual stenosis post PCI. UNA-3 flow post PCI No evidence of dissection or perforation post PCI PCI of RCA- 0% residual stenosis post PCI UNA-3 flow post PCI No evidence of dissection or perforation post PCI Summary: 1. Severe two-vessel coronary disease including the proximal LAD (culprit) and the distal RCA. 2. Successful PCI of the LAD and the RCA with drug-eluting stents. 3. Dual antiplatelet therapy with aspirin 81 mg daily and Brilinta 90 mg p.o. twice daily was initiated. 4. We will begin guideline directed medical therapy for secondary prevention of coronary disease to include; low-dose aspirin, high intensity statin therapy, beta-clem, plus or minus CATHLEEN inhibitor/ARB as tolerated. Hemodynamics Rest Ao:: 146/83 mmHg Final Ao: 165/85 mmHg LV: Not performed Recommendations Recommendations: Medical Therapy and/or Counseling and PCI without planned CABG Radiation Exposure (mGy) 2288 milligrays, fluoroscopy time 17.7 minutes Contrast (mls) 230 mL Anesthesia 3 mg Versed, 75 mcg fentanyl IV. Start time 1011, end time 1114 Procedural Complication(s) None Disposition ICU I attest to the content of the Intraoperative Record and any orders documented therein. Any exceptions are noted below. [facility] Card Cath Procedure Codes Cardiac Catheterization Procedure 1: Cardiovascular Cath Procedures: 85140 Coronaries Moderate Sedation Procedure 1: Sedation/Anesthesia: 38469 Mod Sedation by the same physician;Init15 Min Child Age 5 & Up (Initial 15 minutes, start time 1011) Procedure 2: Sedation/Anesthesia: 83126 Mod Sedation by the same physician; Ea [id number] Minutes (Additional 48 minutes, end time 1114) Stenting Procedure 1: Cardiovascular Stent Procedures: 20406 Perc transluminal revascularization of acute sub/total occl, aMI (LAD) Procedure 2: Cardiovascular Stent Procedures: 75594 Perc transcatheter placement of intracoronary stent(s), with ang (RCA) PG Care Time/CCT Total # of Minutes Spent Total Time Spent with Patient: Total time spent is greater than 50% in coordination of care (as documented) at patient's floor/unit and/or counseling patient:
--- NOTE | 2023-10-02 11:35 | Critical Care Consultation ---
Date of Consultation October 02, 2023 Assessment & Plan (1) Chest pain: Reason Critically Ill: 83-year-old female with acute ST elevation OR PLAN: Resp: Wean supplemental oxygen as tolerated CV: Coronary artery disease -Dual antiplatelet therapy given drug-eluting stent -Beta-clem, CATHLEEN inhibitor, statin Fluids/Renal: Gentle hydration GI/Nutrition: -Follow-up lipid panel Heme: DVT prophylaxis: Anticipate ambulation in 24 hours, SCDs Endocrine: ICU hyperglycemia protocol - Follow-up A1c Vascular access: Peripheral IVs Code Status: Full code Disposition: ICU during reperfusion. (2) Acute ST elevation myocardial infarction (STEMI): History of Present Illness Reason for Consultation: Acute ST elevation OR Attending Physician: Braulio Brandt MD History of Present Illness Following is obtained from prior records: This patient was brought in by EMS after having intermittent chest pain it comes and goes she had several episodes over the last couple days no history of cardiac disease EMS called me prior to arrival they had given her aspirin and she had stable vital signs and was slightly on the hypertensive side. The patient had declined nitroglycerin. They did fax me the EKG. Her anterior leads look abnormal in V1 and V2 with some small elevation with T waves and also Q waves. I compared this to her old one and it definitely looked different I had him repeat a second 1 and it looks slightly worse particular in V3 so I did call the heart alert prehospital. When the patient arrived the industrial management teacher and the cath team arrived as they were putting the patient in the bed. The patient says her chest pain feels better after the nitro. She tells me she has been having "indigestion" for the last couple days and has no history of similar. Denies cardiac history or history of kidney problems. No fall or trauma no shortness of breath or diaphoresis. Patient was taken to the cardiac Post Anesthesia Nurse and received a drug-eluting stent to the RCA and to the LAD via right femoral artery approach and a right radial approach Allergies Allergy/AdvReac Type Severity Reaction Status Date / Time adhesive Allergy Mild Skin Verified 08/31/23 10:43 tearing, redness codeine Allergy Mild Itchy Verified 08/31/23 10:43 ferrous gluconate Allergy Unknown itchy Verified 08/31/23 10:43 Sulfa (Sulfonamide Allergy Unknown Unknown Verified 08/31/23 10:43 Antibiotics) Home Medications Medication Instructions Recorded Confirmed Type [id number] 8 mg-folic 400 1 tab PO QAM 03/17/19 08/31/23 History mcg-K 50 mcg-lutein 300 mcg tablet (Centrum Silver Women) acetaminophen 500 mg tablet 1,000 mg (2 x 500 mg) PO TID pain 10/12/22 08/31/23 Rx (Tylenol Extra Strength) 30 days #180 tabs meloxicam 15 mg tablet 15 mg PO DAILY PRN 03/04/23 08/31/23 History Patient History Medical History Chronic anemia Encounter for pre-operative examination Surgical History History of foot surgery bone spur removal right and left heel History of arthroscopy of right knee History of total left knee replacement (TKR) Left TKA (02/18/17): SAB at L3/4 (x1 attempt) + PNB at [facility] History of total right knee replacement (TKR) History of basal cell carcinoma (BCC) excision History of tooth extraction all upper teeth removed H/O total hysterectomy with removal of both tubes and ovaries 2015 (r/t cancer) Status post hip surgery right APPLE S/P dilation and curettage x2 Family History Mother Heart disease Father Hodgkins disease Heart disease Brother Heart disease Other No family history of adverse response to anesthesia Denies family history of Colon cancer Ovarian cancer Prostate cancer Myocardial infarction Breast cancer Social History Smoking Status: Never smoker Second Hand Exposure: No; Do You Dip or Chew Tobacco: No; Hx Alcohol Use: No Hx Substance Use: No Preferred Language: Occitan Communication Ability: Effective Visual Impairment: No Limitations Hearing Ability: Normal Technology And Engineering Teacher Required: No Beliefs That Will Affect Care: None marital status: Current Living Situation: Spouse current occupational status: retired How many Children do You have: 3 Feels Safe at Home: Yes Childhood Exposure to Second-Hand Smoke: Yes Diet: regular Diet Comment: no specific diet caffeine: Yes Dental Care, Regularly: Yes Physical Activity Frequency: 3-4 Times per Week Seatbelt Use: always Sunscreen Use: No Do you think of yourself as: straight/heterosexual Assistive Devices: Cane, Denture - Upper and Glasses Physical Exam Physical Exam: General: Alert. nontoxic. Resting comfortably in bed Skin: Warm, dry, Head: Atraumatic Ears, nose, mouth and throat: airway patent Cardiovascular: Normal peripheral perfusion Respiratory: no respiratory distress Gastrointestinal: Non distended Musculoskeletal: No deformity Results & Data Results & Data Vital Signs (Past 12 Hours) Vital Signs Temp Pulse Resp BP Pulse Ox O2 Del Method 10/02/23 09:59 36.9 C 67 18 169/96 H 99 Room Air 10/02/23 09:55 99 Room Air Critical Care Results & Data Vital Signs (Past 12 Hours) Vital Signs Temp Pulse Resp BP Pulse Ox O2 Del Method 10/02/23 09:59 36.9 C 67 18 169/96 H 99 Room Air 10/02/23 09:55 99 Room Air Lab & Micro Results (Past 24 Hours) RBC 3.67 M/uL (4.20-5.40) L 10/02/23 WBC 7.29 K/ul (4.8-10.8) 10/02/23 Hgb 11.1 g/dl (12.0-16.0) L 10/02/23 Hct 33.1 % (37.0-47.0) L 10/02/23 MCV 90.2 fL (80.0-100.0) 10/02/23 MCH 30.2 pg (25.0-34.0) 10/02/23 MCHC 33.5 g/dL (32.0-36.0) 10/02/23 RDW Standard Deviation 46.7 fL (36.4-46.3) H 10/02/23 RDW Coefficient of Variation 14.2 % (11.5-14.5) 10/02/23 Plt Count 222 K/uL (130-400) 10/02/23 MPV 10.1 fL (9.4-12.4) 10/02/23 Neutrophils (%) (Auto) 59.1 % 10/02/23 Lymphocytes (%) (Auto) 28.7 % 10/02/23 Monocytes # (Auto) 0.76 K/uL (0.11-0.59) H 10/02/23 Eosinophils # (Auto) 0.09 K/uL (0.00-0.50) 10/02/23 Immature Granulocyte % (Auto) 0.1 % 10/02/23 Neutrophils # (Auto) 4.30 K/uL (1.40-6.50) 10/02/23 Lymphocytes # (Auto) 2.09 K/uL (1.20-3.40) 10/02/23 Monocytes # (Auto) 0.76 K/uL (0.11-0.59) H 10/02/23 Eosinophils # (Auto) 0.09 K/uL (0.00-0.50) 10/02/23 Basophils # (Auto) 0.04 K/uL (0.00-0.20) 10/02/23 Immature Granulocyte # (Auto) 0.01 K/uL (0.01-0.20) 4 Na 138 mmol/L (136-145) 10/02/23 K 4.0 mmol/L (3.5-5.1) 10/02/23 Cl 104 mmol/L (98-107) 10/02/23 CO2 23 mmol/L (21-32) 10/02/23 Anion Gap 11 (3-11) 10/02/23 BUN 24 mg/dl (6-23) H 10/02/23 Creatinine 1.04 mg/dl (0.6-1.2) 10/02/23 Estimated GFR ( Amer) 58.4 ml/min 10/02/23 Estimated GFR (Non-Af Amer) 50.3 ml/min 10/02/23 BUN/Creatinine Ratio 23.1 (10-20) H 10/02/23 Glu 102 mg/dl (70-99(Fasting)) H 10/02/23 Ca 9.8 mg/dl (8.6-10.3) 10/02/23 Total Bilirubin 0.7 mg/dl (0.2-1.0) 10/02/23 AST 32 U/L (13-39) 10/02/23 ALT 13 U/L (7-52) 10/02/23 Alkaline Phosphatase 64 U/L (34-104) 10/02/23 TP 7.3 gm/dl (6.0-8.3) 10/02/23 Albumin 4.4 gm/dl (3.4-5.0) 10/02/23 Globulin 2.9 gm/dl (2.5-4.0) 10/02/23 Albumin/Globulin Ratio 1.5 (0.9-2) 10/02/23 Mg 2.3 mg/dl (1.7-2.4) 10/02/23 09:59 Calcium Level 9.8 mg/dl (8.6-10.3) 10/02/23 09:59 Prothromb Time International Ratio 1.0 (0.9-1.1) 10/02/23 09:5 9 RT Ventilator Mngmt (Last Documented) Ventilator Ordered Settings Respiratory Rate 18 10/02/23 09:59 Ventilator - PT Measurements Respiratory Rate 18 Coding Level of Care Code 44222 IN/OBS CONSULT LVL 5,80M Diagnoses Chest pain R07.2 Chest pain type: precordial pain Acute ST elevation myocardial infarction (STEMI) I21.3 Involved coronary artery: unspecified coronary artery (1) Chest pain Chest pain type: precordial pain Qualified Code(s): R07.2 - Precordial pain (2) Acute ST elevation myocardial infarction (STEMI) Involved coronary artery: unspecified coronary artery Qualified Code(s): I21.3 - ST elevation (STEMI) myocardial infarction of unspecified site
[2023-10-02 11:49] LABS: Estimated Average Glucose 123 mg/dl; Hemoglobin A1C 5.9 % (4.5-5.6)
[2023-10-02 11:50] LABS: Magnesium 2.3 mg/dl (1.7-2.4)
--- NOTE | 2023-10-02 12:11 | History & Physical Report ---
Date of Service October 02, 2023 Assessment & Plan (1) Acute ST elevation myocardial infarction (STEMI): Plan: s/p cardiac catheterization 10/01 with severe two-vessel coronary artery disease and successful PCI of the LAD and RCA with drug-eluting stents. Continue aspirin, Brilinta Start metoprolol tartrate and atorvastatin Hold meloxicam Defer to cardiology/ICU regarding CATHLEEN/ARB HbA1c 5.9, lipid panel pending Consult cardiology and russian language professor for ongoing management Plan VTE prophylaxis - deferred to ICU Diet - heart healthy Disposition - admit to ICU Admission and Anticipated Discharge Date Admission Date: October 02, 2023 History of Present Illness Chief Complaint: Chest pain Primary Care Provider: YULISA Haas Nayeli Lara is an 83 year old female who presents to the ER with chest pressure. She reports having an episode of exertional chest pain while pushing the mower on Thursday which was relieved with Tums therefore she thought she was having indigestion. No further pain until this morning around 4:30 AM. She woke up with 5 out of 10 in severity left Sensa chest pain radiating to her left arm and eventually bilateral fingers. Associated shortness of breath, palpitations and diaphoresis. No dizziness. She has no cardiovascular history. She denies a history of diabetes or hypertension. She reports having 16 siblings who have had various degrees of cardiac problems but unknown if these are under the age of 60. She has never smoked. The patient was seen in the ICU following cardiac catheterization and is now chest pain-free. She reports being chest pain-free since receiving nitroglycerin in the ambulance. Her main complaint is bladder fullness when being seen. Allergies Allergy/AdvReac Type Severity Reaction Status Date / Time adhesive Allergy Mild Skin Verified 08/31/23 10:43 tearing, redness codeine Allergy Mild Itchy Verified 08/31/23 10:43 ferrous gluconate Allergy Unknown itchy Verified 08/31/23 10:43 Sulfa (Sulfonamide Allergy Unknown Unknown Verified 08/31/23 10:43 Antibiotics) Home Medications Medication Instructions Recorded Confirmed Type [id number]-[id number]-[id number] 8 mg-folic 400 1 tab PO QAM 03/17/19 08/31/23 History mcg-K 50 mcg-lutein 300 mcg tablet (Centrum Silver Women) acetaminophen 500 mg tablet 1,000 mg (2 x 500 mg) PO TID pain 10/12/22 08/31/23 Rx (Tylenol Extra Strength) 30 days #180 tabs meloxicam 15 mg tablet 15 mg PO DAILY PRN 03/04/23 08/31/23 History Past Med/Surg History Problem List Elevated troponin I level (Acute) Chest pain (Acute) Acute ST elevation myocardial infarction (STEMI) (Acute) Right shoulder pain Fracture of 5th metatarsal (~08/25/23) Minimally displaced fracture within the mid shaft of the right fifth metatarsal-saw orthopedics-pain started about 2 weeks earlier due to a misstep when she was working in her yard. Displaced fracture Right foot pain IPMN (intraductal papillary mucinous neoplasm) noted on CT 06/13, benign Vaginal bleeding Cataract Preop general physical exam Chronic back pain Left foot pain (Acute) Skin lesion of face (Acute) Routine gynecological examination H/O malignant neoplasm of endometrium 2016 > surgery Degenerative joint disease of left hip Trochanteric bursitis, left hip Anemia Right rotator cuff tendinitis History of basal cell carcinoma Hip arthritis Status post total hip replacement, left Medical History Chronic anemia Encounter for pre-operative examination Surgical History History of foot surgery bone spur removal right and left heel History of arthroscopy of right knee History of total left knee replacement (TKR) Left TKA (02/18/17): SAB at L3/4 (x1 attempt) + PNB at [facility] [place] History of total right knee replacement (TKR) History of basal cell carcinoma (BCC) excision History of tooth extraction all upper teeth removed H/O total hysterectomy with removal of both tubes and ovaries 2016 (r/t cancer) Status post hip surgery right APPLE S/P dilation and curettage x2 Family History Mother Heart disease Father Hodgkins disease Heart disease Brother Heart disease Other No family history of adverse response to anesthesia Denies family history of Colon cancer Ovarian cancer Prostate cancer Myocardial infarction Breast cancer Social History Smoking Status: Never smoker Second Hand Exposure: No; Do You Dip or Chew Tobacco: No; Hx Alcohol Use: No Hx Substance Use: No Preferred Language: Senegalese Communication Ability: Effective Visual Impairment: No Limitations Hearing Ability: Normal Executive Director Of Nursing Required: No Beliefs That Will Affect Care: None marital status: Current Living Situation: Spouse current occupational status: retired How many Children do You have: 3 Feels Safe at Home: Yes Childhood Exposure to Second-Hand Smoke: Yes Diet: regular Diet Comment: no specific diet caffeine: Yes Dental Care, Regularly: Yes Physical Activity Frequency: 3-4 Times per Week Seatbelt Use: always Sunscreen Use: No Do you think of yourself as: straight/heterosexual Assistive Devices: Cane, Denture - Upper and Glasses Review of Systems Review of Systems: All systems reviewed & are unremarkable except as noted in HPI & below Physical Exam Constitutional: WD/WN, vitals as above Eyes: + anicteric sclerae; normal pupil size ENMT: external ear and nose normal, oropharynx normal Respiratory: normal respiratory effort, lungs clear to auscultation Cardiovascular: RRR, no murmur, no edema Gastrointestinal (Abdomen): normal bowel sounds, soft, nontender, no hepatosplenomegaly Musculoskeletal: no cyanosis or clubbing, extremities motor strength 5/5 Skin: no rashes, warm and dry Neurologic: moves all extremities and awake; not confused Psychiatric: A+Ox3, euthymic affect Results & Data Results & Data Vital Signs (Past 12 Hours) Vital Signs Temp Pulse Pulse Resp BP BP Pulse Ox 10/02/23 11:37 36.5 C 60 23 159/83 H 100 10/02/23 09:59 36.9 C 67 18 169/96 H 99 10/02/23 09:55 99 O2 Del Method 10/02/23 11:37 Room Air 10/02/23 09:59 Room Air 10/02/23 09:55 Room Air Laboratory Results Abnormal lab results 10/02/23 10/02/23 10/02/23 Range/Units 09:59 10:04 10:21 RBC 3.67 L (4.20-5.40) M/uL Hgb 11.1 L (12.0-16.0) g/dl POC Hgb 11.2 L (12.0-16.0) g/dl Hct 33.1 L (37.0-47.0) % POC Hct 33 L (37-47) % RDW Std Deviation 46.7 H (36.4-46.3) fL Clarke # (Auto) 0.76 H (0.11-0.59) K/uL Activ Coag Time Kaolin 238 H (94-140) SECONDS POC Total CO2 21 L (24-31) mmol/L POC BUN 22 H (7-18) mg/dl BUN 24 H (6-23) mg/dl BUN/Creatinine Ratio 23.1 H (10-20) Glucose 102 H (70-99(Fasting)) mg/dl POC Glucose (other) 106 H (70-99) mg/dl Hemoglobin A1c 5.9 H (4.5-5.6) % Troponin I High Sens 2316.7 H* (0-14) pg/ml 10/02/23 10/02/23 Range/Units 10:58 11:12 RBC (4.20-5.40) M/uL Hgb (12.0-16.0) g/dl POC Hgb (12.0-16.0) g/dl Hct (37.0-47.0) % POC Hct (37-47) % RDW Std Deviation (36.4-46.3) fL Clarke # (Auto) (0.11-0.59) K/uL Activ Coag Time Kaolin 256 H 269 H (94-140) SECONDS POC Total CO2 (24-31) mmol/L POC BUN (7-18) mg/dl BUN (6-23) mg/dl BUN/Creatinine Ratio (10-20) Glucose (70-99(Fasting)) mg/dl POC Glucose (other) (70-99) mg/dl Hemoglobin A1c (4.5-5.6) % Troponin I High Sens (0-14) pg/ml Diagnostic Findings None Medications Administered ER medications given: Brilinta 180 mg p.o. ECG Rate (beats per minute): 60 Rhythm: normal sinus Findings: + T-wave inversion (Septal) and + ST elevation (Anterior) Comparison ECG Date: from (October 06, 2022) Change: the following changes noted (ST and T wave abnormalities are new) Code Status & VTE Plan Code Status Full VTE Prophylaxis Plan VTE Prophylaxis will be ordered: Yes PG Care Time/CCT Total # of Minutes Spent Total Time Spent with Patient: Total time spent is greater than 50% in coordination of care (as documented) at patient's floor/unit and/or counseling patient: Coding Level of Care Code 68433 INT INP/OBS CARE MIN Diagnoses Acute ST elevation myocardial infarction (STEMI) I21.3 Involved coronary artery: unspecified coronary artery (1) Acute ST elevation myocardial infarction (STEMI) Involved coronary artery: unspecified coronary artery Qualified Code(s): I21.3 - ST elevation (STEMI) myocardial infarction of unspecified site
[2023-10-02 12:29] LABS: Basophils # (auto) 0.05 K/uL (0.00-0.20); Basophils % (auto) 0.8 %; Eosinophils % (auto) 1.5 %; Hematocrit (blood only) 33.7 % (37.0-47.0); Hemoglobin 11.4 g/dl (12.0-16.0); Immature Granulocytes # (auto) 0.01 K/uL (0.01-0.20); Immature Granulocytes % (auto) 0.2 %; Lymphocytes % (auto) 33.3 %; Mean Corpuscular Hemoglobin 30.6 pg (25.0-34.0); Mean Corpuscular Hgb Conc 33.8 g/dL (32.0-36.0); Mean Corpuscular Volume 90.3 fL (80.0-100.0); Mean Platelet Volume 10.2 fL (9.4-12.4); Monocytes # (auto) 0.52 K/uL (0.11-0.59); Monocytes % (auto) 7.9 %; Neutrophils # (auto) 3.73 K/uL (1.40-6.50); Neutrophils % (auto) 56.3 %; Platelet Count 215 K/uL (130-400); RDW Standard Deviation 46.5 fL (36.4-46.3); Red Blood Count 3.73 M/uL (4.20-5.40); White Blood Count 6.61 K/ul (4.8-10.8)
--- NOTE | 2023-10-02 12:33 | XRay Report ---
SINGLE VIEW CHEST CLINICAL HISTORY: [place]ills FINDINGS: An AP, portable, supine chest radiograph is compared to study dated 10/06/2022. The examinat ion is degraded by portable technique and patient rotation. The heart is mildly enlarged noting athe rosclerotic calcification of the thoracic aorta. The pulmonary vasculature is noncongested. Chronic i nterstitial thickening is similar to previous. Scarring/atelectasis is noted at the lung bases. The l ungs and pleural spaces are otherwise clear. No pneumothorax is seen. The skeletal structures are ost eopenic. The bony thorax is grossly intact. IMPRESSION: No active disease in the chest. ACT 112: Negative or not required by law. Electronically signed by: Dylan Matamoros M.D. 10/02/2023 12:31 PM
--- NOTE | 2023-10-02 12:51 | Electrocardiogram Report ---
Test Reason : Blood Pressure : / mmHG Vent. Rate : 064 BPM Atrial Rate : 064 BPM P-R Int : 186 ms QRS Dur : 078 ms QT Int : 494 ms P-R-T Axes : 090 016 039 degrees QTc Int : 509 ms Normal sinus rhythm T wave abnormality, consider anterior ischemia Abnormal ECG When compared with ECG of 06-OCT-2022 12:48, Premature atrial complexes are no longer Present T wave inversion now evident in Anterior leads QT has lengthened Confirmed by Joel Zazueta ([id number]) on 10/02/2023 12:51:18 PM Referred By: Confirmed By:Darryl Zazueta
--- NOTE | 2023-10-02 13:05 | Cardiology Consultation ---
Date of Consultation October 02, 2023 Assessment & Plan (1) Acute ST elevation myocardial infarction (STEMI): Acute FL secondary to proximal LAD lesion. Status post PCI with a drug-eluting stent. Additional underlying chronic coronary disease which was severe in the distal RCA treated with a small caliber drug-eluting stent. Patient is hemodynamically stable and asymptomatic at this time. She will continue with dual antiplatelet therapy using aspirin 81 mg daily and Brilinta 90 mg p.o. twice daily for 1 to 2 years. She has been initiated on guideline directed medical therapy for secondary prevention of coronary disease including metoprolol tartrate 25 mg p.o. twice daily, and a atorvastatin 40 mg daily. She will remain in the ICU for 24 hours post FL per standard of care. We will obtain an echocardiogram and further recommendations will be based on those findings as well as any abnormal lab work. We are excluding occult diabetes with a hemoglobin A1c. (2) Atherogenic dyslipidemia: Patient is high risk. High intensity statin therapy has been initiated with a atorvastatin 40 mg daily. Aggressive LDL reduction target of greater than or equal to 50% of untreated baseline LDL. We are obtaining a direct LDL tonight and in the morning will obtain a full lipid panel. Further recommendations pending results. (3) Benign essential hypertension: Blood pressure was very elevated in the emergency department as well as in the [facility]. This certainly could have been slowly secondary to the acute event, however, I suspect she has some degree of underlying hypertension. For now, we are starting treatment only with metoprolol tartrate 25 mg p.o. twice daily and we will reassess her response to blood pressure medications in the morning. If she remains hypertensive then an CATHLEEN inhibitor or angiotensin receptor clem would be the next indicated agent. History of Present Illness Reason for Consultation: ST elevation FL Attending Physician: Braulio Brandt MD History of Present Illness 83-year-old female without prior cardiac history presented to the [facility] emergency department with complaints of chest discomfort and shortness of breath. EKG was suggestive of anterior myocardial infarction. A heart alert was called and I then saw her in the emergency department. On my arrival there was an elderly female on the stretcher. She looked relatively comfortable and stated that her chest pain was significantly improved after nitroglycerin. She reported several day history of intermittent burning chest pain which she felt was indigestion. She took Tums with some relief. However, she states that each time she began to become active during that time she had recurrence of her chest discomfort. Today, the chest pain was much more severe and she had shortness of breath, nausea, and diaphoresis. She states that she was up all night because she was "too cold". After discussing our suspicion for myocardial infarction and our recommendation for emergent cardiac catheterization the patient agreed to be taken to the cardiac catheterization suite. She did request that her daughter was contacted immediately because the patient's was at home and requires frequent care. In the cardiac catheterization suite the patient continued without any significant ongoing chest discomfort. She underwent diagnostic coronary angiography which revealed an acute proximal LAD lesion with associated thrombus but the vessel was not completely blocked. She underwent PCI of the LAD with a large caliber drug-eluting stent. Right coronary angiography also revealed severe lesion although this 1 was in the distal vessel and did not appear to be an acute lesion. She underwent stenting of this lesion with a small caliber drug-eluting stent. We had good angiographic results and the patient was completely chest pain-free following PCI. She is now admitted to the ICU for further workup and management. She had been given 180 mg of loading dose of Brilinta in the emergency department in addition to aspirin. In the [facility] she received several administrations of IV heparin. She did not require an IV glycoprotein to be 3 a inhibitor. She did not require any hemodynamic support or arrhythmia medications Allergies Allergy/AdvReac Type Severity Reaction Status Date / Time adhesive Allergy Mild Skin Verified 08/31/23 10:43 tearing, redness codeine Allergy Mild Itchy Verified 08/31/23 10:43 ferrous gluconate Allergy Unknown itchy Verified 08/31/23 10:43 Sulfa (Sulfonamide Allergy Unknown Unknown Verified 08/31/23 10:43 Antibiotics) Home Medications Medication Instructions Recorded Confirmed Type [id number] 8 mg-folic 400 1 tab PO QAM 03/17/19 08/31/23 History mcg-K 50 mcg-lutein 300 mcg tablet (Centrum Silver Women) acetaminophen 500 mg tablet 1,000 mg (2 x 500 mg) PO TID pain 10/12/22 08/31/23 Rx (Tylenol Extra Strength) 30 days #180 tabs meloxicam 15 mg tablet 15 mg PO DAILY PRN 03/04/23 08/31/23 History Patient History Medical History Chronic anemia Encounter for pre-operative examination Surgical History History of foot surgery bone spur removal right and left heel History of arthroscopy of right knee History of total left knee replacement (TKR) Left TKA (02/18/17): SAB at L3/4 (x1 attempt) + PNB at [facility] History of total right knee replacement (TKR) History of basal cell carcinoma (BCC) excision History of tooth extraction all upper teeth removed H/O total hysterectomy with removal of both tubes and ovaries 2015 (r/t cancer) Status post hip surgery right APPLE S/P dilation and curettage x2 Family History Mother Heart disease Father Hodgkins disease Heart disease Brother Heart disease Other No family history of adverse response to anesthesia Denies family history of Colon cancer Ovarian cancer Prostate cancer Myocardial infarction Breast cancer Social History Smoking Status: Never smoker Second Hand Exposure: No; Do You Dip or Chew Tobacco: No; Hx Alcohol Use: No Hx Substance Use: No Preferred Language: Maltese Communication Ability: Effective Visual Impairment: No Limitations Hearing Ability: Normal 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 Blindstitch Required: No Beliefs That Will Affect Care: None marital status: Current Living Situation: Spouse current occupational status: retired How many Children do You have: 3 Other Information That Helps Us Care for You: No Feels Safe at Home: Yes Safety Concerns: Feels Safe At This Time Childhood Exposure to Second-Hand Smoke: Yes Diet: regular Diet Comment: no specific diet caffeine: Yes Dental Care, Regularly: Yes Physical Activity Frequency: 3-4 Times per Week Seatbelt Use: always Sunscreen Use: No Do you think of yourself as: straight/heterosexual Assistive Devices: Denture - Upper and Glasses Review of Systems Review of Systems: Negative except as per HPI Results & Data Vital Signs (Past 12 Hours) Vital Signs Temp Pulse Pulse Resp BP BP Pulse Ox 10/02/23 12:18 77 20 151/92 H 100 10/02/23 11:37 36.5 C 60 23 159/83 H 100 10/02/23 11:35 36.5 C 60 23 159/83 H 100 10/02/23 09:59 36.9 C 67 18 169/96 H 99 10/02/23 09:55 99 O2 Del Method 10/02/23 12:18 Room Air 10/02/23 11:37 Room Air 10/02/23 11:35 Room Air 10/02/23 09:59 Room Air 10/02/23 09:55 Room Air PG Care Time/CCT Total # of Minutes Spent Total Time Spent with Patient: Total time spent is greater than 50% in coordination of care (as documented) at patient's floor/unit and/or counseling patient: A total of 65 minutes critical care time was spent in the initial evaluation of the patient, examination, review of the records, discussion with the patient, discussion with the care team in the emergency department, formulation and implementation of a plan of care, and all associated documentation. This time is exclusive of the time spent for the procedure. Coding Level of Care Code 34095 CRITICAL CARE 1ST 30-74M Diagnoses Acute ST elevation myocardial infarction (STEMI) I21.3 Involved coronary artery: unspecified coronary artery Atherogenic dyslipidemia E78.5 Benign essential hypertension I10 Time Spent (min) 65 (1) Acute ST elevation myocardial infarction (STEMI) Involved coronary artery: unspecified coronary artery Qualified Code(s): I21.3 - ST elevation (STEMI) myocardial infarction of unspecified site
[2023-10-02] MEDS: SODIUM CHLORIDE 0.9% 1,000 ML IV SCH (13:38)
[2023-10-02] MEDS: ATORVASTATIN 40 MG TAB PO SCH (13:39)
[2023-10-02] MEDS: ICU Protocol for HYPERglycemia SCH (14:00)
[2023-10-02] MEDS: ACETAMINOPHEN 325 MG TAB PO PRN (14:19)
[2023-10-02] MEDS: METOPROLOL TARTRATE 25 MG TAB PO STA (14:19)
[2023-10-02] MEDS ORDERED: hydrALAZINE HCL 20 MG/ML VIAL IV PRN (15:09)
--- NOTE | 2023-10-02 17:02 | Electrocardiogram Report ---
Test Reason : Blood Pressure : / mmHG Vent. Rate : 060 BPM Atrial Rate : 060 BPM P-R Int : 200 ms QRS Dur : 088 ms QT Int : 540 ms P-R-T Axes : 084 020 054 degrees QTc Int : 540 ms Normal sinus rhythm Marked T wave abnormality, consider anterior ischemia Prolonged QT Abnormal ECG When compared with ECG of 02-OCT-2023 09:56, No significant change was found Confirmed by Joel Zazueta ([id number]) on 10/02/2023 5:02:02 PM Referred By: Braulio Brandt Confirmed By:Darryl Zazueta
[2023-10-02] MEDS: METOPROLOL TARTRATE 25 MG TAB PO SCH (20:46)
[2023-10-02 22:29] LABS: Appearance Urine Clear (Clear); Bacteria Urine Automated None Seen (None Seen); Bilirubin Urine Negative (Negative); Blood Urine 3+ (Negative); Color Urine Yellow; Epithelial Cell Urine Auto 0-2 /hpf (0-2); Glucose Urine UA Negative (Negative); Ketones Urine Trace (Negative); Leukocyte Esterase Urine Negative (Negative); Nitrite Urine Negative (Negative); Protein Urine 1+ (Negative); RBC Urine Automated >20 /hpf (0-2); Specific Gravity Urine > 1.045 (1.000-1.030); Urobilinogen Urine Negative (Negative); pH Urine 5.5 (4.5-7.5)
[2023-10-03 02:25] LABS: Troponin I High Sensitivity 3539.3 pg/ml (0-14)
[2023-10-03 03:03] LABS: Albumin Globulin Ratio 1.4 (0.9-2); Albumin Level 3.7 gm/dl (3.4-5.0); Bilirubin,Total 0.6 mg/dl (0.2-1.0); Calcium 8.3 mg/dl (8.6-10.3); Creatinine Clr Calc Pharmacy 37.4 ml/min; Est GFR (African American) 49.1 ml/min; Est GFR (Non-African American) 42.4 ml/min; Globulin 2.6 gm/dl (2.5-4.0); Magnesium 2.2 mg/dl (1.7-2.4); Phosphorus 4.7 mg/dl (2.5-4.9); Potassium 4.3 mmol/L (3.5-5.1); Total Protein 6.3 gm/dl (6.0-8.3)
[2023-10-03 03:16] LABS: Basophils # (auto) 0.04 K/uL (0.00-0.20); Basophils % (auto) 0.7 %; Eosinophils # (auto) 0.14 K/uL (0.00-0.50); Eosinophils % (auto) 2.3 %; Hematocrit (blood only) 31.4 % (37.0-47.0); Hemoglobin 10.5 g/dl (12.0-16.0); Immature Granulocytes # (auto) 0.01 K/uL (0.01-0.20); Immature Granulocytes % (auto) 0.2 %; Lymphocytes # (auto) 1.25 K/uL (1.20-3.40); Lymphocytes % (auto) 20.4 %; Mean Corpuscular Hgb Conc 33.4 g/dL (32.0-36.0); Mean Corpuscular Volume 92.6 fL (80.0-100.0); Mean Platelet Volume 10.8 fL (9.4-12.4); Monocytes # (auto) 0.67 K/uL (0.11-0.59); Monocytes % (auto) 10.9 %; Neutrophils # (auto) 4.01 K/uL (1.40-6.50); Neutrophils % (auto) 65.5 %; Platelet Count 202 K/uL (130-400); RDW Coefficient of Variation 14.5 % (11.5-14.5); RDW Standard Deviation 49.5 fL (36.4-46.3); Red Blood Count 3.39 M/uL (4.20-5.40); White Blood Count 6.12 K/ul (4.8-10.8)
[2023-10-03 08:17] LABS: Chol HDL Ratio 3.3 (0-5)
[2023-10-03 08:28] LABS: Troponin I High Sensitivity 2894.9 pg/ml (0-14)
[2023-10-03] MEDS: TICAGRELOR 90 MG TAB PO SCH (08:58)
[2023-10-03] MEDS: ASPIRIN 81 MG ECTAB PO SCH (08:58)
--- NOTE | 2023-10-03 10:07 | Critical Care Progress Note ---
Date of Service October 03, 2023 Assessment & Plan (1) Chest pain: Plan: Reason Critically Ill: 83-year-old female with acute ST elevation OK PLAN: CV: Coronary artery disease -Dual antiplatelet therapy given drug-eluting stent -Beta-clem, CATHLEEN inhibitor, statin - ECHO pending Fluids/Renal: - Stop fluids GI/Nutrition: - lipid panel reviewed, on statin Heme: DVT prophylaxis: Anticipate ambulation in 24 hours, SCDs Endocrine: ICU hyperglycemia protocol - Follow-up A1c Vascular access: Peripheral IVs Code Status: Full code Disposition: stable for downgrade out of ICU (2) Acute ST elevation myocardial infarction (STEMI): Admission and Anticipated Discharge Date Admission Date: October 02, 2023 Physical Exam Physical Exam: General: Alert. nontoxic. Sitting upright comfortably in chair Skin: Warm, dry, Head: Atraumatic Ears, nose, mouth and throat: airway patent Cardiovascular: Normal peripheral perfusion Respiratory: no respiratory distress Gastrointestinal: Non distended Musculoskeletal: No deformity Results & Data Results & Data Vital Signs (Past 12 Hours) Vital Signs Temp Pulse Pulse Resp BP BP Pulse Ox 10/03/23 09:02 59 L 21 125/57 L 99 10/03/23 07:00 36.9 C 47 L 19 128/70 98 10/03/23 06:12 37.1 C 52 L 16 95 10/03/23 05:00 37.1 C 53 L 17 97 10/03/23 05:00 135/70 10/03/23 04:00 37.3 C 52 L 17 96 10/03/23 04:00 120/67 10/03/23 04:00 120/67 10/03/23 03:03 37.3 C 54 L 15 95 10/03/23 03:00 119/67 10/03/23 03:00 119/67 10/03/23 02:51 37.3 C 53 L 15 94 10/03/23 02:00 37.3 C 52 L 18 98 10/03/23 02:00 138/70 10/03/23 02:00 138/70 10/03/23 02:00 138/70 10/03/23 01:00 37.4 C 54 L 18 96 10/03/23 01:00 123/72 10/03/23 01:00 123/72 10/03/23 00:00 37.5 C 56 L 17 96 10/03/23 00:00 122/68 10/03/23 00:00 122/68 10/02/23 23:03 37.6 C H 56 L 18 95 10/02/23 23:00 121/71 10/02/23 23:00 121/71 10/02/23 23:00 121/71 10/02/23 22:57 37.6 C H 57 L 19 96 10/02/23 22:06 37.8 C H 59 L 18 96 O2 Del Method 10/03/23 09:02 Room Air 10/03/23 07:00 Room Air 10/03/23 06:12 10/03/23 05:00 10/03/23 05:00 10/03/23 04:00 10/03/23 04:00 10/03/23 04:00 10/03/23 03:03 10/03/23 03:00 10/03/23 03:00 10/03/23 02:51 10/03/23 02:00 10/03/23 02:00 10/03/23 02:00 10/03/23 02:00 10/03/23 01:00 10/03/23 01:00 10/03/23 01:00 10/03/23 00:00 10/03/23 00:00 10/03/23 00:00 10/02/23 23:03 10/02/23 23:00 10/02/23 23:00 10/02/23 23:00 10/02/23 22:57 10/02/23 22:06 Critical Care Results & Data Vital Signs (Past 12 Hours) Vital Signs Temp Pulse Pulse Resp BP BP Pulse Ox 10/03/23 09:02 59 L 21 125/57 L 99 10/03/23 07:00 36.9 C 47 L 19 128/70 98 10/03/23 06:12 37.1 C 52 L 16 95 10/03/23 05:00 37.1 C 53 L 17 97 10/03/23 05:00 135/70 10/03/23 04:00 37.3 C 52 L 17 96 10/03/23 04:00 120/67 10/03/23 04:00 120/67 10/03/23 03:03 37.3 C 54 L 15 95 10/03/23 03:00 119/67 10/03/23 03:00 119/67 10/03/23 02:51 37.3 C 53 L 15 94 10/03/23 02:00 37.3 C 52 L 18 98 10/03/23 02:00 138/70 10/03/23 02:00 138/70 10/03/23 02:00 138/70 10/03/23 01:00 37.4 C 54 L 18 96 10/03/23 01:00 123/72 10/03/23 01:00 123/72 10/03/23 00:00 37.5 C 56 L 17 96 10/03/23 00:00 122/68 10/03/23 00:00 122/68 10/02/23 23:03 37.6 C H 56 L 18 95 10/02/23 23:00 121/71 10/02/23 23:00 121/71 10/02/23 23:00 121/71 10/02/23 22:57 37.6 C H 57 L 19 96 10/02/23 22:06 37.8 C H 59 L 18 96 O2 Del Method 10/03/23 09:02 Room Air 10/03/23 07:00 Room Air 10/03/23 06:12 10/03/23 05:00 10/03/23 05:00 10/03/23 04:00 10/03/23 04:00 10/03/23 04:00 10/03/23 03:03 10/03/23 03:00 10/03/23 03:00 10/03/23 02:51 10/03/23 02:00 10/03/23 02:00 10/03/23 02:00 10/03/23 02:00 10/03/23 01:00 10/03/23 01:00 10/03/23 01:00 10/03/23 00:00 10/03/23 00:00 10/03/23 00:00 10/02/23 23:03 10/02/23 23:00 10/02/23 23:00 10/02/23 23:00 10/02/23 22:57 10/02/23 22:06 Lab & Micro Results (Past 24 Hours) RBC 3.39 M/uL (4.20-5.40) L 10/03/23 WBC 6.12 K/ul (4.8-10.8) 10/03/23 Hgb 10.5 g/dl (12.0-16.0) L 10/03/23 Hct 31.4 % (37.0-47.0) L 10/03/23 MCV 92.6 fL (80.0-100.0) 10/03/23 MCH 31.0 pg (25.0-34.0) 10/03/23 MCHC 33.4 g/dL (32.0-36.0) 10/03/23 RDW Standard Deviation 49.5 fL (36.4-46.3) H 10/03/23 RDW Coefficient of Variation 14.5 % (11.5-14.5) 10/03/23 Plt Count 202 K/uL (130-400) 10/03/23 MPV 10.8 fL (9.4-12.4) 10/03/23 Neutrophils (%) (Auto) 65.5 % 10/03/23 Lymphocytes (%) (Auto) 20.4 % 10/03/23 Monocytes # (Auto) 0.67 K/uL (0.11-0.59) H 10/03/23 Eosinophils # (Auto) 0.14 K/uL (0.00-0.50) 10/03/23 Immature Granulocyte % (Auto) 0.2 % 10/03/23 Neutrophils # (Auto) 4.01 K/uL (1.40-6.50) 10/03/23 Lymphocytes # (Auto) 1.25 K/uL (1.20-3.40) 10/03/23 Monocytes # (Auto) 0.67 K/uL (0.11-0.59) H 10/03/23 Eosinophils # (Auto) 0.14 K/uL (0.00-0.50) 10/03/23 Basophils # (Auto) 0.04 K/uL (0.00-0.20) 10/03/23 Immature Granulocyte # (Auto) 0.01 K/uL (0.01-0.20) 4 Na 134 mmol/L (136-145) L 10/03/23 K 4.3 mmol/L (3.5-5.1) 10/03/23 Cl 103 mmol/L (98-107) 10/03/23 CO2 24 mmol/L (21-32) 10/03/23 Anion Gap 7 (3-11) 10/03/23 BUN 24 mg/dl (6-23) H 10/03/23 Creatinine 1.20 mg/dl (0.6-1.2) 10/03/23 Estimated GFR ( Amer) 49.1 ml/min 10/03/23 Estimated GFR (Non-Af Amer) 42.4 ml/min 10/03/23 BUN/Creatinine Ratio 20.0 (10-20) 10/03/23 Glu 96 mg/dl (70-99(Fasting)) 10/03/23 Ca 8.3 mg/dl (8.6-10.3) L 10/03/23 Phosphorus Level 4.7 mg/dl (2.5-4.9) 10/03/23 Total Bilirubin 0.6 mg/dl (0.2-1.0) 10/03/23 AST 35 U/L (13-39) 10/03/23 ALT 12 U/L (7-52) 10/03/23 Alkaline Phosphatase 55 U/L (34-104) 10/03/23 TP 6.3 gm/dl (6.0-8.3) 10/03/23 Albumin 3.7 gm/dl (3.4-5.0) 10/03/23 Globulin 2.6 gm/dl (2.5-4.0) 10/03/23 Albumin/Globulin Ratio 1.4 (0.9-2) 10/03/23 Mg 2.2 mg/dl (1.7-2.4) 10/03/23 01:40 Calcium Level 8.3 mg/dl (8.6-10.3) L 10/03/23 01:40 Diagnostic Findings (Past 24 Hours) Chest X-Ray 10/02/23 12:07 SINGLE VIEW CHEST CLINICAL HISTORY: [place]ills FINDINGS: An AP, portable, supine chest radiograph is compared to study dated 10/06/2022. The examination is degraded by portable technique and patient rotation. The heart is mildly enlarged noting atherosclerotic calcification of the thoracic aorta. The pulmonary vasculature is noncongested. Chronic interstitial thickening is similar to previous. Scarring/atelectasis is noted at the lung bases. The lungs and pleural spaces are otherwise clear. No pneumothorax is seen. The skeletal structures are osteopenic. The bony thorax is grossly intact. IMPRESSION: No active disease in the chest. ACT 112: Negative or not required by law. Electronically signed by: Dylan Matamoros M.D. 10/02/2023 12:31 PM I & O Totals 24 Hours 10/02/23 10/03/23 10/04/23 06:59 06:59 06:59 Intake Total 882.5 / 882.5 240 / 240 Output Total 2435 / 2435 300 / 300 Balance -1552.5 / -1552.5 -60 / -60 Cumulative 10/02/23 09:26 thru 10/03/23 08:00 Intake Total 1122.5 Output Total 2735 Balance -1612.5 RT Ventilator Mngmt (Last Documented) Ventilator Ordered Settings Respiratory Rate 21 10/03/23 09:02 Ventilator - PT Measurements Respiratory Rate 21 Coding Level of Care Code 25907 SUB INP/OBS CARE 1/25MIN Diagnoses Chest pain R07.2 Chest pain type: precordial pain Acute ST elevation myocardial infarction (STEMI) I21.3 Involved coronary artery: unspecified coronary artery (1) Chest pain Chest pain type: precordial pain Qualified Code(s): R07.2 - Precordial pain (2) Acute ST elevation myocardial infarction (STEMI) Involved coronary artery: unspecified coronary artery Qualified Code(s): I21.3 - ST elevation (STEMI) myocardial infarction of unspecified site
--- NOTE | 2023-10-03 10:53 | Cardiology Progress Note ---
Date of Service October 03, 2023 Assessment & Plan (1) Acute ST elevation myocardial infarction (STEMI): Plan: -Acute anterior wall infarction secondary to proximal LAD lesion. -s/p LAD MAYA. -MAYA also placed in the distal RCA. -Left ventricular systolic function normal at 50% with an anterior wall motion abnormality. -Continue aspirin, Brilinta, Toprol tartrate, and atorvastatin. -Consider addition of low-dose lisinopril or losartan. -Okay to transfer to PCU today. -Consider hospital discharge tomorrow. (2) Atherogenic dyslipidemia: Plan: -Continue atorvastatin 40 Mg daily. (3) Benign essential hypertension: Plan: -Adequate control on current regimen. -As above, consider addition of low-dose lisinopril or losartan. Admission and Anticipated Discharge Date Admission Date: October 02, 2023 Subjective The patient is resting comfortably in bed without complaints of chest pain or dyspnea. Events and procedures from yesterday were reviewed in detail. The patient is anxious for hospital discharge. Physical Exam Physical Exam: In general is well-developed well-nourished white female no acute distress. HEENT exam is negative. Neck is supple with full carotid upstrokes. There are no carotid bruits. Jugular venous pressure is flat at 90 degrees. There is no thyromegaly. Cardiovascular exam has a regular rhythm with distant heart sounds. A 1/6 basal systolic ejection murmur is noted. Lungs are clear without rales, rhonchi, wheezes. Abdomen is soft without bruits. Extremities reveal intact radial artery pulses bilaterally. There is no peripheral edema. Results & Data Vital Signs (Past 12 Hours) Vital Signs Temp Pulse Pulse Resp BP BP Pulse Ox 10/03/23 09:02 59 L 21 125/57 L 99 10/03/23 07:00 36.9 C 47 L 19 128/70 98 10/03/23 06:12 37.1 C 52 L 16 95 10/03/23 05:00 37.1 C 53 L 17 97 10/03/23 05:00 135/70 10/03/23 04:00 37.3 C 52 L 17 96 10/03/23 04:00 120/67 10/03/23 04:00 120/67 10/03/23 03:03 37.3 C 54 L 15 95 10/03/23 03:00 119/67 10/03/23 03:00 119/67 10/03/23 02:51 37.3 C 53 L 15 94 10/03/23 02:00 37.3 C 52 L 18 98 10/03/23 02:00 138/70 10/03/23 02:00 138/70 10/03/23 02:00 138/70 10/03/23 01:00 37.4 C 54 L 18 96 10/03/23 01:00 123/72 10/03/23 01:00 123/72 10/03/23 00:00 37.5 C 56 L 17 96 10/03/23 00:00 122/68 10/03/23 00:00 122/68 10/02/23 23:03 37.6 C H 56 L 18 95 10/02/23 23:00 121/71 10/02/23 23:00 121/71 10/02/23 23:00 121/71 10/02/23 22:57 37.6 C H 57 L 19 96 O2 Del Method 10/03/23 09:02 Room Air 10/03/23 07:00 Room Air 10/03/23 06:12 10/03/23 05:00 10/03/23 05:00 10/03/23 04:00 10/03/23 04:00 10/03/23 04:00 10/03/23 03:03 10/03/23 03:00 10/03/23 03:00 10/03/23 02:51 10/03/23 02:00 10/03/23 02:00 10/03/23 02:00 10/03/23 02:00 10/03/23 01:00 10/03/23 01:00 10/03/23 01:00 10/03/23 00:00 10/03/23 00:00 10/03/23 00:00 10/02/23 23:03 10/02/23 23:00 10/02/23 23:00 10/02/23 23:00 10/02/23 22:57 Laboratory Results High-sensitivity troponin peaked at 5214. Diagnostic Findings Quick look at the echocardiogram performed today notes low normal systolic function with ejection fraction 50%. There is anterior wall hypokinesis. gravel inspector is benign. PG Care Time/CCT Total # of Minutes Spent Total Time Spent with Patient: Total time spent is greater than 50% in coordination of care (as documented) at patient's floor/unit and/or counseling patient: Coding Level of Care Code 19094 SUB INP/OBS CARE 3/50MIN Diagnoses Acute ST elevation myocardial infarction (STEMI) I21.3 Involved coronary artery: unspecified coronary artery Atherogenic dyslipidemia E78.5 Benign essential hypertension I10 (1) Acute ST elevation myocardial infarction (STEMI) Involved coronary artery: unspecified coronary artery Qualified Code(s): I21.3 - ST elevation (STEMI) myocardial infarction of unspecified site
--- NOTE | 2023-10-03 11:07 | Hospitalist Progress Note ---
Date of Service October 03, 2023 Assessment & Plan (1) Acute ST elevation myocardial infarction (STEMI): Plan: Anterior wall. She underwent emergent heart catheterization yesterday, October 01, and was found to have a proximal LAD stenosis and distal RCA stenosis both of which had drug-eluting stents placed. She is now hemodynamically stable and on aspirin, Brilinta, metoprolol, atorvastatin. Cardiology consultation and recommendations appreciated. Cardiac echo report is pending. She will be transferred out of the ICU today, October 02. She is anxious to go home which hopefully can occur tomorrow, October 03 (2) Benign essential hypertension: Plan: Stable. Continue current medical manage (3) Atherogenic dyslipidemia: Plan: Stable. Continue statin therapy Plan Hopeful discharge to home tomorrow, October 03 Admission and Anticipated Discharge Date Admission Date: October 02, 2023 Subjective Alert and oriented. Pleasant and talkative. No recurrent chest pain. Hemodynamically stable. Troponin is now trending down. Cardiac echo report pending. Case discussed with cardiology. She will be transferred to the PCU and hopefully can go home tomorrow, October 03. She is anxious to leave because she takes care of her at home. Review of Systems 2 Review of Systems: Constitutional-no fever or chills ENT-no blurred vision, no double vision, no epistaxis, no sore throat Respiratory-no cough, no wheezing, no shortness of breath Cardiac-no palpitations, no chest pain, no syncope GI-no nausea, vomiting, diarrhea, melena, hematochezia -no urinary retention, no urinary incontinence, no dysuria, no hematuria Musculoskeletal-no joint pain, no muscle tenderness Skin-no bruising, no rashes, no pruritus Neuro-no isolated weakness, no paresthesia, no weakness Psych-no depression, no anxiety Physical Exam 2 Physical Exam: General-alert and oriented x3, no fever, no chills HEENT-head atraumatic and normocephalic, pupils equal and reactive to light, extraocular muscles intact Neck-no lymphadenopathy or thyromegaly, trachea midline Chest-clear to auscultation. No rales, wheezing or rhonchi Cardiac-regular rate and rhythm, normal S1 and S2 Abdomen-normal bowel sounds, no hepatosplenomegaly Extremities-no cyanosis, clubbing, or edema Neuro-cranial nerves II through XII intact, motor and sensory function within normal limits, strength symmetrical, no focal deficits Psych-normal affect, normal mood Results & Data Results & Data Vital Signs (Past 12 Hours) Vital Signs Temp Pulse Pulse Resp BP BP Pulse Ox 10/03/23 09:02 59 L 21 125/57 L 99 10/03/23 07:00 36.9 C 47 L 19 128/70 98 10/03/23 06:12 37.1 C 52 L 16 95 10/03/23 05:00 37.1 C 53 L 17 97 10/03/23 05:00 135/70 10/03/23 04:00 37.3 C 52 L 17 96 10/03/23 04:00 120/67 10/03/23 04:00 120/67 10/03/23 03:03 37.3 C 54 L 15 95 10/03/23 03:00 119/67 10/03/23 03:00 119/67 10/03/23 02:51 37.3 C 53 L 15 94 10/03/23 02:00 37.3 C 52 L 18 98 10/03/23 02:00 138/70 10/03/23 02:00 138/70 10/03/23 02:00 138/70 10/03/23 01:00 37.4 C 54 L 18 96 10/03/23 01:00 123/72 10/03/23 01:00 123/72 10/03/23 00:00 37.5 C 56 L 17 96 10/03/23 00:00 122/68 10/03/23 00:00 122/68 O2 Del Method 10/03/23 09:02 Room Air 10/03/23 07:00 Room Air 10/03/23 06:12 10/03/23 05:00 10/03/23 05:00 10/03/23 04:00 10/03/23 04:00 10/03/23 04:00 10/03/23 03:03 10/03/23 03:00 10/03/23 03:00 10/03/23 02:51 10/03/23 02:00 10/03/23 02:00 10/03/23 02:00 10/03/23 02:00 10/03/23 01:00 10/03/23 01:00 10/03/23 01:00 10/03/23 00:00 10/03/23 00:00 10/03/23 00:00 Laboratory Results 10/03/23 01:44 10/03/23 01:40 PG Care Time/CCT Total # of Minutes Spent Total Time Spent with Patient: Total time spent is greater than 50% in coordination of care (as documented) at patient's floor/unit and/or counseling patient: Coding Level of Care Code 02797 SUB INP/OBS CARE 3/50MIN Diagnoses Acute ST elevation myocardial infarction (STEMI) I21.3 Involved coronary artery: unspecified coronary artery Benign essential hypertension I10 Atherogenic dyslipidemia E78.5 (1) Acute ST elevation myocardial infarction (STEMI) Involved coronary artery: unspecified coronary artery Qualified Code(s): I 21.3 - ST elevation (STEMI) myocardial infarction of unspecified site
[2023-10-03 11:41] LABS: Basophils # (auto) 0.03 K/uL (0.00-0.20); Basophils % (auto) 0.4 %; Hematocrit (blood only) 31.8 % (37.0-47.0); Hemoglobin 10.5 g/dl (12.0-16.0); Immature Granulocytes # (auto) 0.01 K/uL (0.01-0.20); Immature Granulocytes % (auto) 0.1 %; Lymphocytes # (auto) 1.23 K/uL (1.20-3.40); Lymphocytes % (auto) 18.3 %; Mean Corpuscular Hemoglobin 30.8 pg (25.0-34.0); Mean Corpuscular Volume 93.3 fL (80.0-100.0); Mean Platelet Volume 10.2 fL (9.4-12.4); Monocytes # (auto) 0.64 K/uL (0.11-0.59); Monocytes % (auto) 9.5 %; Neutrophils # (auto) 4.61 K/uL (1.40-6.50); Neutrophils % (auto) 68.7 %; Platelet Count 196 K/uL (130-400); RDW Coefficient of Variation 14.6 % (11.5-14.5); RDW Standard Deviation 50.4 fL (36.4-46.3); Red Blood Count 3.41 M/uL (4.20-5.40); White Blood Count 6.72 K/ul (4.8-10.8)
--- NOTE | 2023-10-03 11:41 | XCELERA ---
[id number]
[2023-10-04 06:28] LABS: BUN Creatinine Ratio 21.6 (10-20); Calcium 8.3 mg/dl (8.6-10.3); Est GFR (African American) 59.7 ml/min; Est GFR (Non-African American) 51.5 ml/min; Potassium 4.4 mmol/L (3.5-5.1)
--- NOTE | 2023-10-04 09:48 | Discharge Summary ---
Date of Service October 04, 2023 Admission HPI Per Admitting Provider Nayeli Lara is an 83 year old female who presents to the ER with chest pressure. She reports having an episode of exertional chest pain while pushing the mower on Thursday which was relieved with Tums therefore she thought she was having indigestion. No further pain until this morning around 4:30 AM. She woke up with 5 out of 10 in severity left Sensa chest pain radiating to her left arm and eventually bilateral fingers. Associated shortness of breath, palpitations and diaphoresis. No dizziness. She has no cardiovascular history. She denies a history of diabetes or hypertension. She reports having 16 siblings who have had various degrees of cardiac problems but unknown if these are under the age of 60. She has never smoked. The patient was seen in the ICU following cardiac catheterization and is now chest pain-free. She reports being chest pain-free since receiving nitroglycerin in the ambulance. Her main complaint is bladder fullness when being seen. Principal Diagnosis Acute anterior wall GA Discharge Exam General-alert and oriented x3, no fever, no chills HEENT-head atraumatic and normocephalic, pupils equal and reactive to light, extraocular muscles intact Neck-no lymphadenopathy or thyromegaly, trachea midline Chest-clear to auscultation. No rales, wheezing or rhonchi Cardiac-regular rate and rhythm, normal S1 and S2 Abdomen-normal bowel sounds, no hepatosplenomegaly Extremities-no cyanosis, clubbing, or edema Neuro-cranial nerves II through XII intact, motor and sensory function within normal limits, strength symmetrical, no focal deficits Psych-normal affect, normal mood Discharge Data Allergies Allergy/AdvReac Type Severity Reaction Status Date / Time adhesive Allergy Mild Skin Verified 08/31/23 10:43 tearing, redness codeine Allergy Mild Itchy Verified 08/31/23 10:43 ferrous gluconate Allergy Unknown itchy Verified 08/31/23 10:43 Sulfa (Sulfonamide Allergy Unknown Unknown Verified 08/31/23 10:43 Antibiotics) Consultations 10/02/23 10:12 ED Decision to Admit Stat 10/02/23 11:25 Consult Cardiac Rehabilitation Routine 10/02/23 11:30 Consult Electrical Electronics Technician Routine 10/02/23 14:08 Consult Cardiology Routine Procedures Performed Operation Date: 10/02/23 10:00 Actual Procedures p Cineradiography w/Routine Exam - Faustino Ramsay MD, PhD p Aspiration/PCI w/MAYA for Stemi - Faustino Ramsay MD, PhD s Cath, Coronaries ONLY (no LV) - Faustino Ramsay MD, PhD Ordered Studies 10/02/23 10:00 CL Cath Imgs for PACS use only Stat Hospital Course (1) Acute ST elevation myocardial infarction (STEMI): Anterior wall. She underwent emergent heart catheterization yesterday, October 01, and was found to have a proximal LAD stenosis and distal RCA stenosis both of which had drug-eluting stents placed. She is now hemodynamically stable and on aspirin, Brilinta, metoprolol, atorvastatin. Cardiology consultation and recommendations appreciated. Cardiac echo reveals mild anterior wall hypokin esis with preserved ejection fraction. (2) Benign essential hypertension: Stable. Continue current medical manage (3) Atherogenic dyslipidemia: Stable. 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 * Do not drive or operate any motorized equipment for the next three days. * Limit stair usage (2 or 3 trips a day only) for the next three days. * Do not lift anything heavier than 10 pounds for the next three days. * Do not engage in vigorous exercise or any sports for the next five days. * You may shower the day after your procedure, but do not immerse the area for three days. Cleanse the site gently with soap and water. SPECIAL CARE INSTRUCTIONS: * You may replace the pressure dressing or band-aid the morning after the procedure. * After your procedure, it is normal to have a small bruise or small lump at the site. Examine your site daily for any change in the bruise or lump, redness, swelling, drainage or numbness. Notify your doctor if any change. BLEEDING: * If there is a small amount of bleeding at the site, lie down and apply firm pressure with a clean cloth for ten minutes. When the bleeding stops, lie quietly keeping the procedure limb straight for six hours. Notify your doctor as soon as possible. * If the bleeding does not stop after ten minutes or if there is a large amount of bleeding or spurting, call 911 immediately. Continue to lie down and hold firm pressure until help arrives. SKIN IRRITATION: * You may experience some redness and/or swelling in the area where radiation was administered. If any skin irritation occurs, please contact your family physician. FOLLOW UP VISIT: Keep any scheduled doctor appointments. All new prescriptions were sent to your pharmacy Pending Studies at Discharge: No Stand-Alone Forms: My [facility] Orchestrate, Smoking Cessation Medications and DC Order Prescriptions: New Brilinta 90 mg Tablet 90 mg PO BID Qty: 180 3RF atorvastatin 40 mg Tablet 40 mg PO QAM Qty: 90 3RF nitroglycerin [Nitrostat] 0.4 mg Tablet, Sublingual 0.4 mg sublingual Q5M PRN (Reason: chest pain) Qty: 25 0RF metoprolol tartrate 25 mg Tablet 25 mg PO BID Qty: 60 0RF aspirin 81 mg Tablet,Delayed Release (Dr/Ec) 81 mg PO QAM Qty: 0 0RF Continued acetaminophen [Tylenol Extra Strength] 500 mg tablet 1,000 mg PO TID 30 Days Qty: 180 0RF Rx Instructions: Take 3 times per day to lessen pain Centrum Silver Women 8 mg iron-400 mcg-300 mcg tablet 1 tab PO QAM meloxicam 15 mg tablet 15 mg PO DAILY PRN Discharge Orders: Discharge Order (Routine); Ordered 10/04/23 Ordered By: Pb Jiang Admission Data Admit Date/Time: 10/02/23 10:14 Attending Provider: Pb Jiang Admit Provider: Braulio Brandt Primary Care Provider: Marylou Ulrich Other Providers: Braulio Brandt; Shaheen Nieto; Faustino Ramsay Coding Level of Care Code 53047 INP/OBS DISCH >[address] elevation myocardial infarction (STEMI) I21.3 Involved coronary artery: unspecified coronary artery Benign essential hypertension I10 Atherogenic dyslipidemia E78.5
--- NOTE | 2023-10-04 12:03 | Cardiology Progress Note ---
Date of Service October 04, 2023 Assessment & Plan (1) Acute ST elevation myocardial infarction (STEMI): Plan: -Acute anterior wall infarction secondary to proximal LAD lesion. -s/p LAD MAYA. -MAYA also placed distal RCA. -LVEF normal at 50% with an anterior wall motion abnormality. -Continue aspirin, Brilinta, Toprol tartrate, and atorvastatin. -Consider addition of low-dose lisinopril or losartan. -Okay for hospital discharge. (2) Atherogenic dyslipidemia: Plan: -Continue atorvastatin 40 mg daily. (3) Benign essential hypertension: Plan: -Adequate control on current regimen. -As above, consider addition of low-dose lisinopril or losartan. Admission and Anticipated Discharge Date Admission Date: October 02, 2023 Subjective The patient is resting comfortably in bedside chair without complaints of chest pain or dyspnea. She has been ambulatory without difficulty. She is anxious for hospital discharge. Physical Exam Physical Exam: In general is well-developed well-nourished white female no acute distress. HEENT exam is negative. Neck is supple with full carotid upstrokes. There are no carotid bruits. Jugular venous pressure is flat at 90 degrees. There is no thyromegaly. Cardiovascular exam has a regular rhythm with distant heart sounds. A 1/6 basal systolic ejection murmur is noted. Lungs are clear without rales, rhonchi, wheezes. Abdomen is soft without bruits. Extremities reveal intact radial artery pulses bilaterally. There is no peripheral edema. Results & Data Vital Signs (Past 12 Hours) Vital Signs Temp Pulse Pulse Resp BP BP Pulse Ox 10/04/23 10:11 37.1 C 61 21 114/73 119/69 97 10/04/23 07:37 37.1 C 61 21 114/73 97 10/04/23 07:22 76 10/04/23 04:06 37.1 C 58 L 17 119/69 96 10/04/23 00:10 37.0 C 51 L 17 132/72 97 O2 Del Method 10/04/23 10:11 10/04/23 07:37 Room Air 10/04/23 07:22 10/04/23 04:06 Room Air 10/04/23 00:10 Room Air Diagnostic Findings property assessment monitor is benign. PG Care Time/CCT Total # of Minutes Spent Total Time Spent with Patient: Total time spent is greater than 50% in coordination of care (as documented) at patient's floor/unit and/or counseling patient: Coding Level of Care Code 03541 SUB INP/OBS CARE 350MIN Diagnoses Acute ST elevation myocardial infarction (STEMI) I21.3 Involved coronary artery: unspecified coronary artery Atherogenic dyslipidemia E78.5 Benign essential hypertension I10 (1) Acute ST elevation myocardial infarction (STEMI) Involved coronary artery: unspecified coronary artery Qualified Code(s): I21.3 - ST elevation (STEMI) myocardial infarction of unspecified site
== END 2023-10-04 11:19 | disposition home or self-care (01) | DRG 322 ==
LOC: ED 09:51 → CC 10:13 → 1E 10:13 → SUATTDRO 10:14 → 1E 10:14 → 2E 10-03 19:02
PROC: CLB.CCO (2023-10-02 10:00)